=== PATIENT | male | born 1955 | race Caucasian/White ===

== ENCOUNTER 2021-06-16 04:56 | Emergency (ER) | payer BC ==
[2021-06-16 05:03] VITALS: TEMP 97.5
[2021-06-16] MEDS ORDERED: NITROGLYCERIN SL TABS 0.4 MG TAB SUBLINGUAL STA (05:28)
[2021-06-16 05:38] LABS: Basophils % (A) 1 %; Eosinophils # (A) 0.2 k/uL (0-0.7); Eosinophils % (A) 2 %; HCT 47.5 % (39.0-53.0); HGB 15.8 gm/dL (13.0-17.5); Lymphocytes # (A) 1.7 k/uL (1.0-4.8); Lymphocytes % (A) 23 %; MCHC 33.2 g/dL (31.0-37.0); MCV 102.4 fL (80.0-100.0); Macrocytosis Slight; Mean Platelet Volume 8.6; Monocytes # (A) 0.4 k/uL (0-1.0); Monocytes % (A) 6 %; Neutrophils # (A) 4.7 k/uL (1.3-7.7); Neutrophils % (A) 65 %; Platelet Count 156 k/uL (150-450); RBC 4.63 m/uL (4.30-5.90); RDW 13.7 % (11.5-15.5); WBC 7.2 k/uL (3.8-10.6)
[2021-06-16 06:03] LABS: ALT 22 U/L (4-49); AST 25 U/L (17-59); African American GFR (CKD) >90 (>60 ml/min/1.73 sqM); Alkaline Phosphatase 53 U/L (38-126); Amylase 54 U/L (30-110); Anion Gap 7 mmol/L; Blood Urea Nitrogen 13 mg/dL (9-20); Calcium 9.3 mg/dL (8.4-10.2); Carbon Dioxide 25 mmol/L (22-30); Chloride 107 mmol/L (98-107); Glucose 114 mg/dL (74-99); Lipase 95 U/L (23-300); Magnesium 1.8 mg/dL (1.6-2.3); Non-African American GFR(CKD) >90 (>60 ml/min/1.73 sqM); Potassium 4.7 mmol/L (3.5-5.1); Sodium 139 mmol/L (137-145); Total Bilirubin 0.4 mg/dL (0.2-1.3); Total Protein 6.6 g/dL (6.3-8.2)
[2021-06-16 06:07] LABS: INR 0.9 (<1.2); Prothrombin Time 9.9 sec (9.0-12.0)
--- NOTE | 2021-06-16 06:10 | XR ---
EXAMINATION TYPE: XR chest 1V portable DATE OF EXAM: 06/16/2021 COMPARISON: NONE HISTORY: Chest pain TECHNIQUE: Single view FINDINGS: Heart appears enlarged. There is no heart failure. Lungs are clear of consolidation. There are no hilar masses. There are chest leads. IMPRESSION: No active cardiopulmonary disease. There is probably cardiomegaly.
--- NOTE | 2021-06-16 06:24 | ED ---
Chest Pain HPI - General Chief Complaint: Chest Pain Stated Complaint: Chest Pain Time Seen by Provider: 06/16/21 05:11 Source: patient, family Mode of arrival: ambulatory Limitations: no limitations - History of Present Illness Initial Comments: This patient is a 65-year-old man who presents to be evaluated for substernal chest pain radiating to his back and shortness of breath. The patient notes that it had come on though was very mild at midnight shortly after he applied drops to his eye. Patient states that he is using a medication for his eye after having cataract surgery. He does note that he had similar reaction when he had a cataract surgery for the other eye a few weeks ago. The patient applied another dropped his eye around 2 AM and states that his symptoms worsened at that time. MD Complaint: chest pain -: hour(s) Onset: during rest Pain Location: substernal Pain Radiation: back Severity: moderate Quality: aching Consistency: constant Improves With: nothing Worsens With: nothing Context: recent surgery Anginal Symptoms: dyspnea Treatments Prior to Arrival: none - Related Data Allergies Allergy/AdvReac Type Severity Reaction Status Date / Time No Known Allergies Allergy Verified 06/16/21 05:03 Review of Systems ROS Statement: Those systems with pertinent positive or pertinent negative responses have been documented in the HPI. ROS Other: All systems not noted in ROS Statement are negative. Constitutional: Denies: fever, chills Respiratory: Reports: as per HPI, dyspnea. Denies: cough, wheezes, hemoptysis Cardiovascular: Reports: chest pain. Denies: palpitations, orthopnea, edema, syncope Gastrointestinal: Denies: abdominal pain, nausea, vomiting, diarrhea Genitourinary: Denies: dysuria, hematuria Musculoskeletal: Reports: back pain Skin: Denies: rash Neurological: Denies: headache, weakness, numbness Psychiatric: Reports: anxiety EKG Findings - EKG Results: EKG: interpreted by ERMD, sinus rhythm (Rate 69 bpm), normal QRS, normal ST/T - Blocks, [place], Hypertrophy, ST Abn: QRS axis and voltage: left axis deviation (-30 to -90) Past Medical History Past Medical History: Hypertension History of Any Multi-Drug Resistant Organisms: None Reported Past Surgical History: Orthopedic Surgery Additional Past Surgical History / Comment(s): cataracts Smoking Status: Former smoker Past Alcohol Use History: Occasional Past Drug Use History: None Reported General Exam Limitations: no limitations General appearance: alert, in no apparent distress Head exam: Present: atraumatic, normocephalic Eye exam: Present: normal appearance. Absent: scleral icterus, conjunctival injection ENT exam: Present: normal oropharynx Neck exam: Present: normal inspection Respiratory exam: Present: normal lung sounds bilaterally. Absent: respiratory distress, wheezes, rales, rhonchi, stridor, chest wall tenderness, accessory muscle use, decreased breath sounds Cardiovascular Exam: Present: regular rate, normal rhythm, normal heart sounds. Absent: systolic murmur, diastolic murmur, rubs, gallop GI/Abdominal exam: Present: soft. Absent: distended, tenderness, guarding, rebound, rigid, mass Extremities exam: Present: normal inspection, normal capillary refill. Absent: pedal edema, calf tenderness Back exam: Present: normal inspection. Absent: CVA tenderness (R), CVA tenderness (L) Neurological exam: Present: alert Skin exam: Present: warm, dry, intact, normal color. Absent: rash Course Vital Signs 06/16/21 06/16/21 04:58 06:33 Temperature 97.5 F L Pulse Rate 71 65 Respiratory 28 H 18 Rate Blood Pressure 166/92 150/77 O2 Sat by Pulse 97 98 Oximetry Chest Pain MDM - MDM This patient is 65-year-old man with chest pain and dyspnea. His initial workup is negative, and I discussed admission for telemetry monitoring, serial enzymes and cardiology consultation. The patient is feeling well now and is convinced that he is having a medication reaction. I stated that I think that this is l ess likely to be the case and I'm more concerned about possibly of missing a coronary syndrome, but the patient does not want stay. We discussed and he agrees that he will return should any symptoms recur or if any new symptoms develop. Patient will have close follow-up with his physician to see about arranging possible stress test. Disposition Clinical Impression: Chest pain Disposition: Left Against Medical Advice Condition: Undetermined Instructions (If sedation given, give patient instructions): Chest Pain (ED) Is patient prescribed a controlled substance at d/c from ED?: No Referrals: Bruce Rebolledo MD [Primary Care Provider] - 1-2 days
[2021-06-16 06:34] VITALS: BP 150/77; PULSE 65; RESP 18
== END 2021-06-16 06:44 | disposition left against medical advice (07) ==
LOC: EC 04:56
DX: R07.9 Chest pain, unspecified (principal); I10 Essential (primary) hypertension; Z79.891 Long term (current) use of opiate analgesic
CPT/HCPCS: 36415; 71045; 80053; 82150; 83690; 83735; 83880; 84484; 85025; 85610; 85730; 93005; 99285

== ENCOUNTER 2022-11-06 17:48 | Emergency (ER) | payer MEDICARE, BC ==
[2022-11-06 17:56] VITALS: TEMP 98.2
[2022-11-06] MEDS ORDERED: SODIUM CHLORIDE 0.9% 1,000 ML IV STA (18:44)
[2022-11-06] MEDS ORDERED: LORazepam 2 MG/ML INJ IV STA (18:47)
[2022-11-06] MEDS ORDERED: IPRATROPIUM-ALBUTEROL 3 ML NEB INHALATION STA (18:48)
--- NOTE | 2022-11-06 18:50 | ED ---
General Adult HPI - General Chief complaint: Weakness Stated complaint: weakness Time Seen by Provider: 11/06/22 18:35 Source: patient, EMS, RN notes reviewed Mode of arrival: EMS Limitations: no limitations - History of Present Illness Initial comments: Patient is a pleasant 66-year-old male presenting to the emergency Department with general weakness. Patient did have COVID-19 infection back in May and has been having some symptoms since that time. Patient states his has been diagnosed with critical disease over the past month and is not doing well. She has been hospitalized. Patient was not tolerating this well. Patient just feels generally weak. Patient is having difficulty getting around. Patient does feel somewhat short of breath. No isolated area of weakness or confusion. - Related Data Home Medications Medication Instructions Recorded Confirmed Diclofenac Sodium Gel [Voltaren 1 applic TOPICAL QID PRN 11/06/22 11/06/22 Gel] Ibuprofen [Motrin] 800 mg PO Q8H PRN 11/06/22 11/06/22 Losartan Potassium [Cozaar] 100 mg PO HS 11/06/22 11/06/22 amLODIPine [Norvasc] 5 mg PO HS 11/06/22 11/06/22 hydrOXYzine HCL [Atarax] 25 mg PO TID PRN 11/06/22 11/06/22 oxyCODONE-APAP 5-325MG [Percocet 0.5 tab PO BID PRN 11/06/22 11/06/22 5-325 mg] Allergies Allergy/AdvReac Type Severity Reaction Status Date / Time methylprednisolone AdvReac Nausea & Verified 11/06/22 19:30 Vomiting & Diarrhea Review of Systems ROS Statement: Those systems with pertinent positive or pertinent negative responses have been documented in the HPI. ROS Other: All systems not noted in ROS Statement are negative. Constitutional: Denies: fever, chills Eyes: Denies: eye pain ENT: Reports: congestion (Mostly resolved). Denies: ear pain Respiratory: Reports: dyspnea Cardiovascular: Denies: chest pain Endocrine: Reports: fatigue Gastrointestinal: Reports: nausea. Denies: abdominal pain Genitourinary: Denies: dysuria Musculoskeletal: Denies: back pain Skin: Denies: rash Neurological: Reports: as per HPI, weakness. Denies: headache Psychiatric: Reports: anxiety Past Medical History Past Medical History: GI Bleed, Hypertension History of Any Multi-Drug Resistant Organisms: None Reported Past Surgical History: Orthopedic Surgery Additional Past Surgical History / Comment(s): cataracts Smoking Status: Former smoker Past Alcohol Use History: Occasional Past Drug Use History: None Reported General Exam Limitations: no limitations General appearance: alert, in no apparent distress Head exam: Present: atraumatic, normocephalic Eye exam: Present: normal appearance, PERRL, EOMI ENT exam: Present: normal oropharynx Neck exam: Present: normal inspection Respiratory exam: Present: normal lung sounds bilaterally Cardiovascular Exam: Present: regular rate, normal rhythm GI/Abdominal exam: Present: soft. Absent: tenderness Extremities exam: Present: normal inspection. Absent: pedal edema, calf tenderness Neurological exam: Present: alert, oriented X3, CN II-XII intact. Absent: motor sensory deficit Expanded Neurological exam: Present: protecting the airway Speech: Present: fluid speech Cranial nerves: EOM's Intact: Normal, Facial Sensation: Normal Motor strength exam: RUE: 5, LUE: 5, RLE: 5, LLE: 5 Eye Response: (4) open spontaneously Motor Response: (6) obeys commands Verbal Response: (5) oriented Psychiatric exam: Present: anxious (When questioned regarding his ) Skin exam: Present: normal color Course Vital Signs 11/06/22 11/06/22 11/06/22 17:54 18:00 18:29 Temperature 98.2 F Pulse Rate 79 76 Respiratory 22 18 18 Rate Blood Pressure 163/81 173/89 O2 Sat by Pulse 95 95 Oximetry 11/06/22 11/06/22 11/06/22 20:00 20:17 20:27 Temperature Pulse Rate 68 74 80 Respiratory 16 16 Rate Blood Pressure 139/98 145/105 O2 Sat by Pulse 98 Oximetry EKG Findings - EKG Results: EKG: interpreted by ERMD (Left axis. Left anterior fascicular block. No acute ST change. Q wave septal.), sinus rhythm, normal ST/T Medical Decision Making - Medical Decision Making Was pt. sent in by a medical professional or institution (, PA, [employer] [facility], urgent care, hospital, or prison...) When possible be specific @ -No Did you speak to anyone other than the patient for history (EMS, parent, family, police, friend...)? What history was obtained from this source @ -Family members are present and helps provide history including concerns with sick family member Did you review nursing and triage notes (agree or disagree)? Why? @ -I reviewed and agree with nursing and triage notes Were old charts reviewed (outside hosp., previous admission, EMS record, old EKG, old radiological studies, urgent care reports/EKG's, prison records)? Report findings @ -No old charts were reviewed Differential Diagnosis (chest pain, altered mental status, abdominal pain women, abdominal pain men, vaginal bleeding, weakness, fever, dyspnea, syncope, headache, dizziness, GI bleed, back pain, seizure, CVA, palpatations, mental health)? @ -Differential Weakness: Hypoglycemia, shock, sepsis, hyponatremia, anemia, infection, VT, ETOH, adverse medicine reaction, overdose, stroke, this is not meant to be an all-inclusive list. EKG interpreted by me (3pts min.). @ -As above X-rays interpreted by me (1pt min.). @ -As above CT interpreted by me (1pt min.). @ -None done U/S interpreted by me (1pt. min.). @ -None done What testing was considered but not performed or refused? (CT, X-rays, U/S, labs)? Why? @ -None What meds were considered but not given or refused? Why? @ -None Did you discuss the management of the patient with other professionals (professionals i.e. , PA, [employer], lab, RT, psych nurse, social work program coordinator, furnace maintenance, teacher, community liaison officer, case management coordinator)? Give summary @ -No Was smoking cessation discussed for >3mins.? @ -No Was critical care preformed (if so, how long)? @ -No Were there social determinants of health that impacted care today? How? (Homelessness, low income, unemployed, alcoholism, drug addiction, transportation, low edu. Level, literacy, decrease access to med. care, senior care, rehab)? @ -No Was there de-escalation of care discussed even if they declined (Discuss DNR or withdrawal of care, Hospice)? DNR status @ -No What co-morbidities impacted this encounter? (DM, HTN, Smoking, COPD, CAD, Cancer, CVA, ARF, Chemo, Hep., AIDS, mental health diagnosis, sleep apnea, morbid obesity)? @ -None Was patient admitted / discharged? Hospital course, mention meds given and route, prescriptions, significant lab abnormalities, going to OR and other pertinent info. @ -Patient reevaluated and resting comfortably in bed. Patient is feeling much better after Ativan. Discussion with patient regarding some limitation with computed tomography scan and as well as other testing. Patient is offered admission however patient refuses this. Patient states he is walking fine and requests discharge home. Undiagnosed new problem with uncertain prognosis? @ -No Drug Therapy requiring intensive monitoring for toxicity (Heparin, Nitro, Insulin, Cardizem)? @ -No Were any procedures done? @ -No Diagnosis/symptom? @ -General weakness Acute, or Chronic, or Acute on Chronic? @ -Acute Uncomplicated (without systemic symptoms) or Complicated (systemic symptoms)? @ -Uncomplicated Side effects of treatment? @ -No Exacerbation, Progression, or Severe Exacerbation? @ -No Poses a threat to life or bodily function? How? (Chest pain, [place], VT, pneumonia, PE, COPD, DKA, ARF, appy, cholecystitis, CVA, Diverticulitis, Homicidal, Suicidal, threat to staff... and all critical care pts) @ -No - Lab Data Result diagrams: 11/06/22 18:53 11/06/22 18:53 Lab Results 11/06/22 11/06/22 11/06/22 Range/Units 18:53 18:53 18:53 WBC 7.0 (3.8-10.6) k/uL RBC 4.43 (4.30-5.90) m/uL Hgb 14.3 (13.0-17.5) gm/dL Hct 42.4 (39.0-53.0) % MCV 95.7 (80.0-100.0) fL MCH 32.2 (25.0-35.0) pg MCHC 33.6 (31.0-37.0) g/dL RDW 12.9 (11.5-15.5) % Plt Count 152 (150-450) k/uL MPV 8.6 Neutrophils % 78 % Lymphocytes % 14 % Monocytes % 5 % Eosinophils % 1 % Basophils % 1 % Neutrophils # 5.4 (1.3-7.7) k/uL Lymphocytes # 1.0 (1.0-4.8) k/uL Monocytes # 0.3 (0-1.0) k/uL Eosinophils # 0.1 (0-0.7) k/uL Basophils # 0.1 (0-0.2) k/uL PT 9.9 (9.0-12.0) sec INR 0.9 (<1.2) APTT 23.0 (22.0-30.0) sec D-Dimer 0.30 (<0.60) mg/L FEU Sodium 138 (137-145) mmol/L Potassium 4.3 (3.5-5.1) mmol/L Chloride 107 (98-107) mmol/L Carbon Dioxide 27 (22-30) mmol/L Anion Gap 4 mmol/L BUN 20 (9-20) mg/dL Creatinine 0.80 (0.66-1.25) mg/dL Est GFR (CKD-EPI)AfAm >90 (>60 ml/min/1.73 sqM) Est GFR (CKD-EPI)NonAf >90 (>60 ml/min/1.73 sqM) Glucose 109 H (74-99) mg/dL Plasma Lactic Acid [place] (0.7-2.0) mmol/L Calcium 8.6 (8.4-10.2) mg/dL Magnesium 1.8 (1.6-2.3) mg/dL Total Bilirubin 0.2 (0.2-1.3) mg/dL AST 18 (17-59) U/L ALT 20 (4-49) U/L Alkaline Phosphatase 53 (38-126) U/L Troponin I (0.000-0.034) ng/mL NT-Pro-B Natriuret Pep pg/mL Total Protein 6.3 (6.3-8.2) g/dL Albumin 3.8 (3.5-5.0) g/dL TSH 0.807 (0.465-4.680) mIU/L Free T4 1.21 (0.78-2.19) ng/dL Free T3 pg/mL 4.1 (2.8-5.3) pg/ml Urine Color Urine Appearance (Clear) Urine pH (5.0-8.0) Ur Specific [place] (1.001-1.035) Urine Protein (Negative) Urine Glucose (UA) (Negative) Urine Ketones (Negative) Urine Blood (Negative) Urine Nitrite (Negative) Urine Bilirubin (Negative) Urine Urobilinogen (<2.0) mg/dL Ur Leukocyte Esterase (Negative) Influenza Type A (PCR) (Not Detectd) Influenza Type B (PCR) (Not Detectd) RSV (PCR) (Not Detectd) SARS-CoV-2 (PCR) (Not Detectd) 11/06/22 11/06/22 11/06/22 Range/Units 18:53 18:53 18:53 WBC (3.8-10.6) k/uL RBC (4.30-5.90) m/uL Hgb (13.0-17.5) gm/dL Hct (39.0-53.0) % MCV (80.0-100.0) fL MCH (25.0-35.0) pg MCHC (31.0-37.0) g/dL RDW (11.5-15.5) % Plt Count (150-450) k/uL MPV Neutrophils % % Lymphocytes % % Monocytes % % Eosinophils % % Basophils % % Neutrophils # (1.3-7.7) k/uL Lymphocytes # (1.0-4.8) k/uL Monocytes # (0-1.0) k/uL Eosinophils # (0-0.7) k/uL Basophils # (0-0.2) k/uL PT (9.0-12.0) sec INR (<1.2) APTT (22.0-30.0) sec D-Dimer (<0.60) mg/L FEU Sodium (137-145) mmol/L Potassium (3.5-5.1) mmol/L Chloride (98-107) mmol/L Carbon Dioxide (22-30) mmol/L Anion Gap mmol/L BUN (9-20) mg/dL Creatinine (0.66-1.25) mg/dL Est GFR (CKD-EPI)AfAm (>60 ml/min/1.73 sqM) Est GFR (CKD-EPI)NonAf (>60 ml/min/1.73 sqM) Glucose (74-99) mg/dL Plasma Lactic Acid [place] 1.5 (0.7-2.0) mmol/L Calcium (8.4-10.2) mg/dL Magnesium (1.6-2.3) mg/dL Total Bilirubin (0.2-1.3) mg/dL AST (17-59) U/L ALT (4-49) U/L Alkaline Phosphatase (38-126) U/L Troponin I <0.012 (0.000-0.034) ng/mL NT-Pro-B Natriuret Pep pg/mL Total Protein (6.3-8.2) g/dL Albumin (3.5-5.0) g/dL TSH (0.465-4.680) mIU/L Free T4 (0.78-2.19) ng/dL Free T3 pg/mL (2.8-5.3) pg/ml Urine Color Urine Appearance (Clear) Urine pH (5.0-8.0) Ur Specific [place] (1.001-1.035) Urine Protein (Negative) Urine Glucose (UA) (Negative) Urine Ketones (Negative) Urine Blood (Negative) Urine Nitrite (Negative) Urine Bilirubin (Negative) Urine Urobilinogen (<2.0) mg/dL Ur Leukocyte Esterase (Negative) Influenza Type A (PCR) Not Detected (Not Detectd) Influenza Type B (PCR) Not Detected (Not Detectd) RSV (PCR) Not Detected (Not Detectd) SARS-CoV-2 (PCR) Not Detected (Not Detectd) 11/06/22 11/06/22 Range/Units 18:53 19:53 WBC (3.8-10.6) k/uL RBC (4.30-5.90) m/uL Hgb (13.0-17.5) gm/dL Hct (39.0-53.0) % MCV (80.0-100.0) fL MCH (25.0-35.0) pg MCHC (31.0-37.0) g/dL RDW (11.5-15.5) % Plt Count (150-450) k/uL MPV Neutrophils % % Lymphocytes % % Monocytes % % Eosinophils % % Basophils % % Neutrophils # (1.3-7.7) k/uL Lymphocytes # (1.0-4.8) k/uL Monocytes # (0-1.0) k/uL Eosinophils # (0-0.7) k/uL Basophils # (0-0.2) k/uL PT (9.0-12.0) sec INR (<1.2) APTT (22.0-30.0) sec D-Dimer (<0.60) mg/L FEU Sodium (137-145) mmol/L Potassium (3.5-5.1) mmol/L Chloride (98-107) mmol/L Carbon Dioxide (22-30) mmol/L Anion Gap mmol/L BUN (9-20) mg/dL Creatinine (0.66-1.25) mg/dL Est GFR (CKD-EPI)AfAm (>60 ml/min/1.73 sqM) Est GFR (CKD-EPI)NonAf (>60 ml/min/1.73 sqM) Glucose (74-99) mg/dL Plasma Lactic Acid [place] (0.7-2.0) mmol/L Calcium (8.4-10.2) mg/dL Magnesium (1.6-2.3) mg/dL Total Bilirubin (0.2-1.3) mg/dL AST (17-59) U/L ALT (4-49) U/L Alkaline Phosphatase (38-126) U/L Troponin I (0.000-0.034) ng/mL NT-Pro-B Natriuret Pep 96 pg/mL Total Protein (6.3-8.2) g/dL Albumin (3.5-5.0) g/dL TSH (0.465-4.680) mIU/L Free T4 (0.78-2.19) ng/dL Free T3 pg/mL (2.8-5.3) pg/ml Urine Color Colorless Urine Appearance Clear (Clear) Urine pH 5.0 (5.0-8.0) Ur Specific [place] 1.008 (1.001-1.035) Urine Protein Negative (Negative) Urine Glucose (UA) Negative (Negative) Urine Ketones Negative (Negative) Urine Blood Negative (Negative) Urine Nitrite Negative (Negative) Urine Bilirubin Negative (Negative) Urine Urobilinogen <2.0 (<2.0) mg/dL Ur Leukocyte Esterase Negative (Negative) Influenza Type A (PCR) (Not Detectd) Influenza Type B (PCR) (Not Detectd) RSV (PCR) (Not Detectd) SARS-CoV-2 (PCR) (Not Detectd) - Radiology Data Radiology results: report reviewed (CT brain as discussed with radiologist shows some patchy bilateral white matter changes, likely chronic. Atrophy. No hemorrhage.) Interpreted by me: Chest x-ray shows no acute process Disposition Clinical Impression: General weakness, Anxiety Disposition: HOME SELF-CARE Condition: Stable Instructions (If sedation given, give patient instructions): Weakness (ED), Anxiety (ED) Additional Instructions: Please do follow-up with primary care physician in the next day or 2 for recheck. Return for unable to walk, worsening or change in symptoms, or any other concerns. Extra medication has been sent home with few to take if needed. Do not drive with this. Is patient prescribed a controlled substance at d/c from ED?: No Referrals: Bruce Rebolledo MD [Primary Care Provider] - 1-2 days Time of Disposition: 20:42
[2022-11-06 19:13] LABS: Basophils # (A) 0.1 k/uL (0-0.2); Basophils % (A) 1 %; Eosinophils # (A) 0.1 k/uL (0-0.7); Eosinophils % (A) 1 %; HCT 42.4 % (39.0-53.0); HGB 14.3 gm/dL (13.0-17.5); Lymphocytes % (A) 14 %; MCH 32.2 pg (25.0-35.0); MCHC 33.6 g/dL (31.0-37.0); MCV 95.7 fL (80.0-100.0); Mean Platelet Volume 8.6; Monocytes # (A) 0.3 k/uL (0-1.0); Monocytes % (A) 5 %; Neutrophils # (A) 5.4 k/uL (1.3-7.7); Neutrophils % (A) 78 %; Platelet Count 152 k/uL (150-450); RBC 4.43 m/uL (4.30-5.90); RDW 12.9 % (11.5-15.5)
--- NOTE | 2022-11-06 19:15 | XR ---
EXAMINATION TYPE: XR chest 2V DATE OF EXAM: 11/06/2022 COMPARISON: 06/16/2021 HISTORY: Weakness TECHNIQUE: 2 views FINDINGS: There is no heart failure nor confluent pneumonic infiltrate. Costophrenic angles are clear . There are chest leads. IMPRESSION: No active cardiopulmonary disease. No change.
[2022-11-06 19:28] LABS: ALT 20 U/L (4-49); AST 18 U/L (17-59); African American GFR (CKD) >90 (>60 ml/min/1.73 sqM); Albumin 3.8 g/dL (3.5-5.0); Alkaline Phosphatase 53 U/L (38-126); Anion Gap 4 mmol/L; Blood Urea Nitrogen 20 mg/dL (9-20); Calcium 8.6 mg/dL (8.4-10.2); Carbon Dioxide 27 mmol/L (22-30); Chloride 107 mmol/L (98-107); Glucose 109 mg/dL (74-99); Magnesium 1.8 mg/dL (1.6-2.3); Non-African American GFR(CKD) >90 (>60 ml/min/1.73 sqM); Potassium 4.3 mmol/L (3.5-5.1); Sodium 138 mmol/L (137-145); Total Bilirubin 0.2 mg/dL (0.2-1.3); Total Protein 6.3 g/dL (6.3-8.2)
[2022-11-06 19:33] LABS: INR 0.9 (<1.2); Prothrombin Time 9.9 sec (9.0-12.0)
[2022-11-06 19:40] LABS: T4, Free (Free Thyroxine) 1.21 ng/dL (0.78-2.19)
--- NOTE | 2022-11-06 19:54 | CT ---
EXAMINATION TYPE: CT brain wo con DATE OF EXAM: 11/06/2022 COMPARISON: None HISTORY: Weakness x4mo. CT DLP: 1162.4 mGycm Automated exposure control for dose reduction was used. Images of the brain obtained with no contrast. There is mild cerebral cortical atrophy. There is no mass effect or midline shift. No sign of intracr anial hemorrhage. There is some patchy hypodensity in the periventricular white matter bilaterally. The calvarium is intact. There is normal aeration of the mastoid sinuses. Skull base is intact. IMPRESSION: There is some patchy bilateral white matter hypodensities suggestive of microvascular ischemia. No he morrhage. Mild atrophy.
[2022-11-06 20:17] VITALS: RESP 16
[2022-11-06 20:18] VITALS: BP 145/105
[2022-11-06 20:20] LABS: Appearance,Urine Clear (Clear); Bilirubin,Urine Negative (Negative); Blood,Urine Negative (Negative); Color,Urine Colorless; Glucose,Urine (UA) Negative (Negative); Ketones,Urine Negative (Negative); Leukocyte Esterase,Urine Negative (Negative); Nitrite,Urine Negative (Negative); Protein,Urine Negative (Negative); Specific Gravity,Urine 1.008 (1.001-1.035); Urobilinogen,Urine <2.0 mg/dL (<2.0)
[2022-11-06 20:28] VITALS: PULSE 80
[2022-11-06] MEDS ORDERED: ALPRAZolam 0.5 MG TAB PO STA (20:43)
== END 2022-11-06 21:22 | disposition home or self-care (01) ==
LOC: EC 17:48
DX: R53.1 Weakness (principal); F41.9 Anxiety disorder, unspecified; I10 Essential (primary) hypertension; Z87.891 Personal history of nicotine dependence; Z88.8 Allergy status to other drugs, medicaments and biological substances; Z79.899 Other long term (current) drug therapy; Z20.822 Contact with and (suspected) exposure to COVID-19
CPT/HCPCS: 36415; 94640; 85379; 84439; 84481; 83880; 80053; 83605; 83735; 84443; 84484; 85025; 85610; 85730; 81003; 87636; 71046; 70450; 99285; 96374; 96361; J2060

== ENCOUNTER 2024-04-30 16:04 | Inpatient (IN) | payer BC, MEDICARE ==
[2024-04-30 16:39] LABS: Basophils % (A) 1 %; Eosinophils # (A) 0.2 k/uL (0-0.7); Eosinophils % (A) 3 %; HCT 43.6 % (39.0-53.0); HGB 14.2 gm/dL (13.0-17.5); Lymphocytes # (A) 1.4 k/uL (1.0-4.8); Lymphocytes % (A) 21 %; MCH 32.5 pg (25.0-35.0); MCHC 32.4 g/dL (31.0-37.0); MCV 100.1 fL (80.0-100.0); Mean Platelet Volume 9.1; Monocytes # (A) 0.4 k/uL (0-1.0); Monocytes % (A) 5 %; Neutrophils # (A) 4.4 k/uL (1.3-7.7); Neutrophils % (A) 66 %; Platelet Count 158 k/uL (150-450); RBC 4.36 m/uL (4.30-5.90); RDW 13.6 % (11.5-15.5); WBC 6.6 k/uL (3.8-10.6)
[2024-04-30 16:51] LABS: INR 1.1 (<1.2); Partial Thromboplastin Time 25.2 sec (22.0-30.0); Prothrombin Time 12.1 sec (10.0-12.5)
--- NOTE | 2024-04-30 16:56 | ED ---
General Adult HPI - General Chief complaint: Arrhythmia/Palpitations Stated complaint: AFIB Time Seen by Provider: 04/30/24 16:18 Source: patient, RN notes reviewed, old records reviewed Mode of arrival: ambulatory Limitations: no limitations - History of Present Illness Initial comments: 68-year-old male sent from primary care office with new onset atrial fibrillation with RVR. Patient has no prior history of CAD, no history of atrial fibrillation. He has had some symptoms of left-sided chest discomfort and mild dyspnea. Patient denies central chest pain at the time my evaluation. Denies any illicit drugs or alcohol. Patient has had intermittent palpitations. - Related Data Home Medications Medication Instructions Recorded Confirmed Diclofenac Sodium Gel [Voltaren 1 applic TOPICAL QID PRN 11/06/22 11/06/22 Gel] Ibuprofen [Motrin] 800 mg PO Q8H PRN 11/06/22 11/06/22 Losartan Potassium [Cozaar] 100 mg PO HS 11/06/22 11/06/22 amLODIPine [Norvasc] 5 mg PO HS 11/06/22 11/06/22 hydrOXYzine HCL [Atarax] 25 mg PO TID PRN 11/06/22 11/06/22 oxyCODONE-APAP 5-325MG [Percocet 0.5 tab PO BID PRN 11/06/22 11/06/22 5-325 mg] Allergies Allergy/AdvReac Type Severity Reaction Status Date / Time methylprednisolone AdvReac Nausea & Verified 04/30/24 16:05 Vomiting & Diarrhea Review of Systems ROS Statement: Those systems with pertinent positive or pertinent negative responses have been documented in the HPI. ROS Other: All systems not noted in ROS Statement are negative. Past Medical History Past Medical History: GI Bleed, Hypertension History of Any Multi-Drug Resistant Organisms: None Reported Past Surgical History: Orthopedic Surgery Additional Past Surgical History / Comment(s): cataracts Smoking Status: Former smoker Past Alcohol Use History: Occasional Past Drug Use History: None Reported General Exam Limitations: no limitations General appearance: alert, in no apparent distress Head exam: Present: atraumatic, normocephalic Eye exam: Present: normal appearance, PERRL ENT exam: Present: normal exam Neck exam: Present: normal inspection. Absent: tenderness, meningismus Respiratory exam: Present: decreased breath sounds. Absent: respiratory distress, wheezes Cardiovascular Exam: Present: tachycardia, irregular rhythm GI/Abdominal exam: Present: soft. Absent: distended, tenderness, guarding Extremities exam: Present: normal inspection, normal capillary refill. Absent: pedal edema Neurological exam: Present: alert, oriented X3 Psychiatric exam: Present: normal affect, normal mood Skin exam: Present: warm, dry, intact. Absent: cyanosis, diaphoretic Course Vital Signs 04/30/24 04/30/24 04/30/24 16:05 16:19 16:30 Temperature 97.7 F Pulse Rate 72 Pulse Rate [ 151 H 144 H Veneer Jointer Returner ] Respiratory 16 Rate Blood Pressure 132/92 O2 Sat by Pulse 95 Oximetry 04/30/24 04/30/24 17:06 17:18 Temperature Pulse Rate 151 H 144 H Pulse Rate [ Veneer Jointer Returner ] Respiratory 16 Rate Blood Pressure 117/102 117/102 O2 Sat by Pulse 96 Oximetry Medical Decision Making - Medical Decision Making Was pt. sent in by a medical professional or institution (, PA, BATTER MIXER, urgent care, hospital, or snf...) When possible be specific @ -Patient was sent in by primary care with new onset atrial fibrillation Did you speak to anyone other than the patient for history (EMS, parent, family, police, friend...)? What history was obtained from this source @ -No Did you review nursing and triage notes (agree or disagree)? Why? @ -I reviewed and agree with nursing and triage notes Were old charts reviewed (outside hosp., previous admission, EMS record, old EKG, old radiological studies, urgent care reports/EKG's, snf records)? Report findings @ -No old charts were reviewed Differential Palpitations Ventricular arrhythmias, atrial arrhythmias, myocardial infarction, anemia, thyrotoxicosis, electrolyte imbalance, hypokalemia, pulmonary embolism, pulmonary disease, drugs, alcohol, anxiety, stress.... This is not meant to be an all-inclusive list. EKG interpreted by me (3pts min.). @EKG: Atrial fibrillation with RVR, rate of 144, QRS duration 97, QTc 376, no ST segment elevation. X-rays interpreted by me (1pt min.). @ -Chest x-ray negative for acute cardiopulmonary CT interpreted by me (1pt min.). @ -None done U/S interpreted by me (1pt. min.). @ -None done What testing was considered but not performed or refused? (CT, X-rays, U/S, labs)? Why? @ -None What meds were considered but not given or refused? Why? @ -None Did you discuss the management of the patient with other professionals (professionals i.e. , PA, BATTER MIXER, lab, RT, psych nurse, medical social consultant, dusting and brushing machine operator, teacher, aboriginal liaison officer, outpatient case manager)? Give summary @ -No Was smoking cessation discussed for >3mins.? @ -No Was critical care preformed (if so, how long)? @ -yes, 35 min Were there social determinants of health that impacted care today? How? (Homelessness, low income, unemployed, alcoholism, drug addiction, transportation, low edu. Level, literacy, decrease access to med. care, fpc, rehab)? @ -No Was there de-escalation of care discussed even if they declined (Discuss DNR or withdrawal of care, Hospice)? DNR status @ -No What co-morbidities impacted this encounter? (DM, HTN, Smoking, COPD, CAD, Cancer, CVA, ARF, Chemo, Hep., AIDS, mental health diagnosis, sleep apnea, morbid obesity)? @ -None Was patient admitted / discharged? Hospital course, mention meds given and route, prescriptions, significant lab abnormalities, going to OR and other pertinent info. @ -68 yo male presenting with new onset atrial fibrillation with RVR, patient has no prior history. He does have some vague chest discomfort associated with this. Patient started on Cardizem and heparin in the emergency department. He has normal lab testing, chest x-ray is clear. He is admitted to [facility], Dr. Winter with cardiology on consultation. Undiagnosed new problem with uncertain prognosis? @ -No Drug Therapy requiring intensive monitoring for toxicity (Heparin, Nitro, Insulin, Cardizem)? @ -No Were any procedures done? @ -No Diagnosis/symptom? @Atrial fibrillation with RVR Acute, or Chronic, or Acute on Chronic? @ -[acute Uncomplicated (without systemic symptoms) or Complicated (systemic symptoms)? @ -Default Side effects of treatment? @ -No Exacerbation, Progression, or Severe Exacerbation? @ -No Poses a threat to life or bodily function? How? (Chest pain, [place], [place], pneumonia, PE, COPD, DKA, ARF, appy, cholecystitis, CVA, Diverticulitis, Homicidal, Suicidal, threat to staff... and all critical care pts) @ -yes, a-fib - Lab Data Result diagrams: 04/30/24 16:27 04/30/24 16:27 Lab Results 04/30/24 04/30/24 04/30/24 Range/Units 16:27 16:27 16:27 WBC 6.6 (3.8-10.6) k/uL RBC 4.36 (4.30-5.90) m/uL Hgb 14.2 (13.0-17.5) gm/dL Hct 43.6 (39.0-53.0) % MCV 100.1 H (80.0-100.0) fL MCH 32.5 (25.0-35.0) pg MCHC 32.4 (31.0-37.0) g/dL RDW 13.6 (11.5-15.5) % Plt Count 158 (150-450) k/uL MPV 9.1 Neutrophils % 66 % Lymphocytes % 21 % Monocytes % 5 % Eosinophils % 3 % Basophils % 1 % Neutrophils # 4.4 (1.3-7.7) k/uL Lymphocytes # 1.4 (1.0-4.8) k/uL Monocytes # 0.4 (0-1.0) k/uL Eosinophils # 0.2 (0-0.7) k/uL Basophils # 0.0 (0-0.2) k/uL PT 12.1 (10.0-12.5) sec INR 1.1 (<1.2) APTT 25.2 (22.0-30.0) sec Sodium 139 (137-145) mmol/L Potassium 4.5 (3.5-5.1) mmol/L Chloride 110 H (98-107) mmol/L Carbon Dioxide 25 (22-30) mmol/L Anion Gap 4 mmol/L BUN 21 H (9-20) mg/dL Creatinine 0.86 (0.66-1.25) mg/dL Est GFR (CKD-EPI)AfAm >90 (>60 ml/min/1.73 sqM) Est GFR (CKD-EPI)NonAf 88 (>60 ml/min/1.73 sqM) Glucose 98 (74-99) mg/dL Calcium 8.7 (8.4-10.2) mg/dL Magnesium 1.8 (1.6-2.3) mg/dL Total Bilirubin 0.7 (0.2-1.3) mg/dL AST 21 (17-59) U/L ALT 22 (4-49) U/L Alkaline Phosphatase 54 (38-126) U/L Troponin I (0.000-0.034) ng/mL Total Protein 6.1 L (6.3-8.2) g/dL Albumin 3.7 (3.5-5.0) g/dL TSH 1.410 (0.465-4.680) mIU/L 04/30/24 Range/Units 16:27 WBC (3.8-10.6) k/uL RBC (4.30-5.90) m/uL Hgb (13.0-17.5) gm/dL Hct (39.0-53.0) % MCV (80.0-100.0) fL MCH (25.0-35.0) pg MCHC (31.0-37.0) g/dL RDW (11.5-15.5) % Plt Count (150-450) k/uL MPV Neutrophils % % Lymphocytes % % Monocytes % % Eosinophils % % Basophils % % Neutrophils # (1.3-7.7) k/uL Lymphocytes # (1.0-4.8) k/uL Monocytes # (0-1.0) k/uL Eosinophils # (0-0.7) k/uL Basophils # (0-0.2) k/uL PT (10.0-12.5) sec INR (<1.2) APTT (22.0-30.0) sec Sodium (137-145) mmol/L Potassium (3.5-5.1) mmol/L Chloride (98-107) mmol/L Carbon Dioxide (22-30) mmol/L Anion Gap mmol/L BUN (9-20) mg/dL Creatinine (0.66-1.25) mg/dL Est GFR (CKD-EPI)AfAm (>60 ml/min/1.73 sqM) Est GFR (CKD-EPI)NonAf (>60 ml/min/1.73 sqM) Glucose (74-99) mg/dL Calcium (8.4-10.2) mg/dL Magnesium (1.6-2.3) mg/dL Total Bilirubin (0.2-1.3) mg/dL AST (17-59) U/L ALT (4-49) U/L Alkaline Phosphatase (38-126) U/L Troponin I <0.012 (0.000-0.034) ng/mL Total Protein (6.3-8.2) g/dL Albumin (3.5-5.0) g/dL TSH (0.465-4.680) mIU/L Critical Care Time Critical Care Time: Yes Total Critical Care Time: 35 Disposition Clinical Impression: Atrial fibrillation, Atrial fibrillation with RVR Disposition: ADMITTED IP TO THIS HOSP Condition: Stable Is patient prescribed a controlled substance at d/c from ED?: No Referrals: Bruce Rebolledo MD [Primary Care Provider] - 1-2 days Time of Disposition: 17:44
[2024-04-30 16:58] LABS: ALT 22 U/L (4-49); AST 21 U/L (17-59); African American GFR (CKD) >90 (>60 ml/min/1.73 sqM); Albumin 3.7 g/dL (3.5-5.0); Alkaline Phosphatase 54 U/L (38-126); Anion Gap 4 mmol/L; Blood Urea Nitrogen 21 mg/dL (9-20); Calcium 8.7 mg/dL (8.4-10.2); Carbon Dioxide 25 mmol/L (22-30); Chloride 110 mmol/L (98-107); Glucose 98 mg/dL (74-99); Magnesium 1.8 mg/dL (1.6-2.3); Non-African American GFR(CKD) 88 (>60 ml/min/1.73 sqM); Potassium 4.5 mmol/L (3.5-5.1); Sodium 139 mmol/L (137-145); Total Bilirubin 0.7 mg/dL (0.2-1.3); Total Protein 6.1 g/dL (6.3-8.2)
[2024-04-30] MEDS: DILTIAZEM DRIP BOLUS FROM BAG 1 MG SOLN IV ONE (17:04)
[2024-04-30] MEDS: DILTIAZEM 125 MG in SODIUM CHLORIDE 0.9% 100 ML IV SCH (17:05)
--- NOTE | 2024-04-30 17:29 | XR ---
EXAMINATION TYPE: XR chest 2V DATE OF EXAM: 04/30/2024 COMPARISON: 11/06/2022 INDICATION: Dysrhythmia TECHNIQUE: Frontal and lateral views of the chest are obtained. FINDINGS: The heart size is prominent. The pulmonary vasculature is normal. The lungs are clear. IMPRESSION: 1. Mild cardiomegaly.
[2024-04-30] MEDS ORDERED: NALOXONE 0.4 MG/ML 1 ML VIAL IV PRN (17:37)
[2024-04-30] MEDS: HEPARIN SODIUM 1,000 UN/ML (10ML VL) IV ONE (18:39)
[2024-04-30] MEDS: HEPARIN SOD,PORK IN 0.45% NACL 25,000 UNIT in 0.45% NACL 1 250ML.BAG IV SCH (18:42)
--- NOTE | 2024-04-30 21:03 | P.HPIM ---
History of Present Illness H&P Date: 04/30/24 Chief Complaint: A-fib with RVR Patient is a 68-year-old male with hypertension and questionable history CAD came to ER from urgent care for A-fib with RVR. Patient was earlier assessed at the urgent care for his ongoing shortness of breath and was diagnosed with A-fib with RVR and was advised to go to ER. Patient reports shortness of breath since 3 weeks which has been constant, worse with physical activities and better with rest. His shortness of breath is also associated with left upper extremity weakness and dizziness Patient reports that he would feel weak on his left side whenever he would physically exerts himself and it would resolve upon rest. His dizziness is associated with postural changes especially when he gets up from sitting position. Patient denies calf pain, recent hospitalization, recent travel. Denies history of blood clots. Patient denies any thyroid disorder, history of coronary artery disease or CVA, He has tried some [id number] inhalers which did not alleviate his symptoms. . he did mention that about 25 years ago he felt chest discomfort while using illicit drugs. He underwent cardiology assessment but he is unsure whether he was diagnosed with coronary artery disease secondary to drug use. He otherwise denies any recent illicit drug use, loss of consciousness, headaches, blurry vision, upper respiratory tract infection, fever, chills, chest pain, abdominal discomfort, constipation, diarrhea, numbness or tingling in upper or lower extremities. EKG done in ER shows heart rate of 144, irregular, A-fib with RVR, nonspecific T wave abnormality. QTc is 376 ms and is not prolonged. Chest x-ray done in ER shows mild cardiomegaly with clear lung marvin. Vitals: Tmax 97.7 F, heart rate 152, irregular, respiration rate 16, blood pressure 130/95, O2 sat 98% on room air. Review of systems: Pertinent positives and negatives as discussed in HPI, a complete review of systems was performed and all other systems are negative. Social history: Tobacco: 5-pack-year; quit at age 23 Alcohol: 2 beers x 40 years; quit 1 year ago Recreational drugs: Illicit drug use 30 years ago Travel: None Occupation: Retired auto body mechanic apprentice. Family History: Noncontributory Physical examination: Vital signs reviewed General: non toxic, no distress, appears at stated age, normal weight Derm: no unusual rashes/lesions, warm Head: atraumatic, normocephalic, symmetric Eyes: EOMI, no lid lag, anicteric sclera, pupils equal round reactive to light ENT: Nose and ears atraumatic Neck: No cervical lymphadenopathy, trachea midline, supple Mouth: no lip lesion, mucus membranes moist Cardiovascular: S1S2 irregular, no murmur, positive dorsalis pedis pulse bilateral, no edema Lungs: Diminished breath sounds on right side, no rhonchi, no rales, no accessory muscle use Abdominal: soft, nontender to palpation, no guarding Ext: muscle strength 5 out of 5 in all 4 extremities grossly, no gross muscle atrophy, no contractures, Neuro: CN II-XI grossly intact, no gross focal neuro deficits Psych: Alert, oriented, appropriate affect Assessment/Plan: 68-year-old male with hypertension and suspected history of CAD presents to the ER with diagnosis of A-fib with RVR which is associated with shortness of breath, dizziness since 3 weeks. - New onset A-fib with RVR Continue with Cardizem IV 5 mg/h titrate for rate control<100 Continue with IV heparin dosing by pharmacy , switch to dual oral anticoagulants tomorrow per insurance coverage Continue cardiac monitoring Cardiology consulted Ordered echocardiogram to rule out cardiac structural abnormality , blood clots, as likely cause of arrhythmia Continue with troponin I series (latest less than 0.012) TSH 1.4; normal Well's Score: 1.5 points - Low risk , doubt DVT/PE at this time -Shortness of breath, secondary to A-fib with the RVR, and suspected due to undiagnosed COPD and Continue to monitor oxygen saturation Will start on DuoNebs as needed per diminished breath sounds on right lung examination Chest x-ray is unremarkable for abnormal pulmonary processes -Macrocytosis, likely due to poor diet Check RBC folate, vitamin B12 Hemoglobin 14.2, hematocrit 43.6, MCV 100.1, platelet 158 -Elevated BUN secondary to dehydration Sodium 139, potassium 4.5, chloride 110, bicarb 25, anion gap 4, BUN 21, creatinine 0.86, EGFR 88 Continue to monitor BUN/creatinine with repeat BMP IVF normal saline at 75 cc per hour *Chronic conditions: Hypertension continue home meds with hold parameters DVT prophylaxis: IV heparin for afib The patient is admitted with an anticipated more than 2 midnight stay for evaluation of A-fib with the RVR CODE STATUS: Full Discussed with: Patient Anticipated discharge place: Home Past Medical History Past Medical History: GI Bleed, Hypertension History of Any Multi-Drug Resistant Organisms: None Reported Past Surgical History: Orthopedic Surgery Additional Past Surgical History / Comment(s): cataracts Smoking Status: Former smoker Past Alcohol Use History: Occasional Past Drug Use History: None Reported Medications and Allergies Home Medications Medication Instructions Recorded Confirmed Type Losartan Potassium [Cozaar] 100 mg PO HS 11/06/22 04/30/24 History amLODIPine [Norvasc] 5 mg PO HS 11/06/22 04/30/24 History oxyCODONE-APAP 5-325MG [Percocet 0.5 tab PO BID 11/06/22 04/30/24 History 5-325 mg] Ibuprofen [Motrin Ib] 200 mg PO Q8H PRN 04/30/24 04/30/24 History Allergies Allergy/AdvReac Type Severity Reaction Status Date / Time Corticosteroids Allergy Swelling/Shortness Verified 04/30/24 17:43 (Glucocorticoids) of breath/Swelling methylprednisolone Allergy Swelling/Shortness Verified 04/30/24 17:43 of breath/Swelling Physical Exam Vitals: Vital Signs Temp Pulse Pulse Resp BP Pulse Ox 04/30/24 18:00 152 H 16 130/95 98 04/30/24 17:18 144 H 117/102 04/30/24 17:06 151 H 16 117/102 96 04/30/24 16:30 144 H 04/30/24 16:19 151 H 04/30/24 16:05 97.7 F 72 16 132/92 95 Intake and Output 04/30/24 04/30/24 04/30/24 06:59 14:59 22:59 Other: Weight 129.274 kg Results CBC & Chem 7: 04/30/24 16:27 04/30/24 16:27 Labs: Abnormal Lab Results - Last 24 Hours (Table) 04/30/24 04/30/24 Range/Units 16:27 16:27 MCV 100.1 H (80.0-100.0) fL Chloride 110 H (98-107) mmol/L BUN 21 H (9-20) mg/dL Total Protein 6.1 L (6.3-8.2) g/dL Assessment and Plan Assessment: I have seen and evaluated the patient today. I Discussed the case with the resident and agree with the resident's findings , I edited the plan where necessary as documented in the resident's note.
[2024-04-30] MEDS ORDERED: IPRATROPIUM-ALBUTEROL 3 ML NEB INHALATION PRN (21:40)
[2024-04-30] MEDS: IPRATROPIUM-ALBUTEROL 3 ML NEB INHALATION STA (22:11)
[2024-04-30] MEDS: LOSARTAN 50 MG TAB PO SCH (22:52)
[2024-04-30] MEDS: amLODIPine 5 MG TAB PO SCH (22:52)
[2024-04-30] MEDS: oxyCODONE-APAP 5-325MG 1 EACH TAB PO SCH (23:27)
[2024-05-01] MEDS: HEPARIN SODIUM 1,000 UN/ML (10ML VL) IV PRN (02:17)
[2024-05-01] MEDS ORDERED: DILTIAZEM 125 MG in SODIUM CHLORIDE 0.9% 100 ML IV SCH (05:37)
[2024-05-01] MEDS: DILTIAZEM 125 MG in SODIUM CHLORIDE 0.9% 100 ML IV SCH (06:55)
[2024-05-01 08:04] LABS: Basophils # (A) 0.1 k/uL (0-0.2); Basophils % (A) 1 %; Eosinophils # (A) 0.2 k/uL (0-0.7); Eosinophils % (A) 3 %; HCT 44.1 % (39.0-53.0); Lymphocytes # (A) 1.5 k/uL (1.0-4.8); Lymphocytes % (A) 20 %; MCH 31.8 pg (25.0-35.0); MCHC 31.8 g/dL (31.0-37.0); MCV 100.2 fL (80.0-100.0); Mean Platelet Volume 9.3; Monocytes # (A) 0.5 k/uL (0-1.0); Monocytes % (A) 6 %; Neutrophils # (A) 4.9 k/uL (1.3-7.7); Neutrophils % (A) 67 %; Platelet Count 149 k/uL (150-450); RBC 4.41 m/uL (4.30-5.90); RDW 13.7 % (11.5-15.5); WBC 7.3 k/uL (3.8-10.6)
[2024-05-01 08:12] LABS: Prothrombin Time 11.3 sec (10.0-12.5)
--- NOTE | 2024-05-01 08:48 | P.PN ---
Subjective Progress Note Date: 05/01/24 68 year old M with PMH of hypertension presents to the ED from urgent care of new diagnosis of A-Fib with RVR. In the ED he underwent extensive evaluation. Vital signs shows BP as high as 117/102, HR as high as 152, T 97.7F, RR 16, 95% on RA. CBC, Coag panel, CMP significant for MCV 100.1, Cl 110, BUN 21, total protein 6.1. Troponin < 0.012, 0.013, < 0.012. TSH 1.41. B12 230. EKG A Fib with RVR rate of 144. CXR cardiomegaly. Patient was started on cardizem and heparin drip and admitted for further workup and management. 05/01 Patient was seen and examined. HR continues to be in the 120-140s. Adamant about wanting to go home even if he needs to signs out AMA. Maintained on Cardizem drip at 10 mg/hr and Heparin drip for AC. Cardiology consulted, Metoprolol 50 mg PO BID added. CBC MCV 100.2, Plt 149. APTT 30.1. General: non toxic, no distress, appears at stated age, morbidly obese Derm: warm, dry Head: atraumatic, normocephalic, symmetric Eyes: EOMI, no lid lag, anicteric sclera Mouth: no lip lesion, mucus membranes moist Cardiovascular: S1S2 irreg, no murmur Lungs: Decreased bilateral, no rhonchi, no rales , no accessory muscle use Ext: no gross muscle atrophy, no edema, no contractures Neuro: No focal neurologic deficits Psych: Alert, oriented, appropriate affect Atrial fibrillation with RVR: Attempt to wean Cardizem drip currently running at 10 mg/hr. Heparin drip for AC monitor daily APTT. TSH wnl. Maintain Mag > 2 and K > 4. Echo is pending. Telemetry monitoring. Cardiology on board. Macrocytosis with low-normal B12: Asymptomatic. Follow up with PCP would benefit from Vit B12 IM injections. Hypertension: Restart Losartan 100 mg PO QHS. Metoprolol added as above. Cardizem drip as above. Heparin drip for DVT prophylaxis. Surrogate decision maker: FULL CODE. I have reviewed the following forestry consultant notes: ED note. I have reviewed the results of the following tests: CBC, Troponin, APTT. I have ordered the following tests: As above. BMP and Mag ordered as add on to day. I have discussed the care of this patient with the following independent historian: I have independently interpreted the following test below: I have discussed the management of this patient with the following physician: Objective - Vital Signs Vital signs: Vital Signs Temp 97.5 F L 04/30/24 22:56 Pulse 147 H 05/01/24 06:40 Resp 27 H 05/01/24 06:40 BP 144/115 05/01/24 06:40 Pulse Ox 95 05/01/24 06:40 FiO2 Intake & Output 04/30/24 05/01/24 05/01/24 18:59 06:59 18:59 Intake Total 138.742 Balance 138.742 Weight 129.274 kg Intake: Intake, IV Titration 138.742 Amount Diltiazem 125 mg In 62.583 Sodium Chloride 0.9% 100 ml @ 5 MG/HR 5 mls/hr IV .Q24H [facility] Rx#:[id number] Heparin Sod,Pork in 0.45% 76.159 NaCl 25,000 unit In 0.45 % NaCl 1 250ml.bag @ 7. 735 UNITS/KG/HR 9.999 mls /hr IV .Q24H [facility] Rx#: [id number] - Labs CBC & Chem 7: 05/01/24 07:36 04/30/24 16:27 Labs: Abnormal Lab Results - Last 24 Hours (Table) 04/30/24 04/30/24 05/01/24 Range/Units 16:27 16:27 00:06 MCV 100.1 H (80.0-100.0) fL Plt Count (150-450) k/uL APTT 30.1 H (22.0-30.0) sec Chloride 110 H (98-107) mmol/L BUN 21 H (9-20) mg/dL Total Protein 6.1 L (6.3-8.2) g/dL 05/01/24 Range/Units 07:36 MCV 100.2 H (80.0-100.0) fL Plt Count 149 L (150-450) k/uL APTT (22.0-30.0) sec Chloride (98-107) mmol/L BUN (9-20) mg/dL Total Protein (6.3-8.2) g/dL
[2024-05-01] MEDS: METOPROLOL TARTRATE 50 MG TAB PO SCH (09:47)
--- NOTE | 2024-05-01 10:05 | P.CRDCN ---
History of Present Illness History of present illness: HISTORY OF PRESENT ILLNESS: This is a 68-year-old male with a past medical history significant for hypertension, hyperlipidemia and obesity. Patient follows in the office with Dr. Hightower but has not been seen in the office since November 2022. We have been asked to see the patient in consultation for A-fib with RVR. Patient examined at the bedside in the emergency room. Patient presented to the hospital with a chief complaint of shortness of breath. He states he has been feeling short of breath for the past 2 to 3 weeks. Patient was found to be in A-fib with RVR. Patient was started on IV heparin and IV Cardizem. He remains in atrial fibrillation with heart rate between [id number]. He is currently on IV Cardizem at 10 mg an hour. Patient denies having a history of atrial fibrillation. He currently denies chest pain or pressure. He reports he is still mildly short of breath this morning. Blood pressure stable. DIAGNOSTICS: - EKG reveals A-fib with RVR. - Chest xray mild cardiomegaly. - Laboratory data: WBC 7.3. Hemoglobin 14.0. Platelet count 149. Sodium 139. Potassium 4.5. BUN 21. Creatinine 0.86. Magnesium 1.8. Troponin negative x 3. TSH 1.410. - Current home cardiac medications include amlodipine 5 mg at night, losartan 100 mg at night. REVIEW OF SYSTEMS: At the time of my exam: CONSTITUTIONAL: Denies fever or chills. HEENT: Denies blurred vision, vision changes, or eye pain. Denies hemoptysis CARDIOVASCULAR: Denies chest pain. Denies orthopnea. Denies PND. Denies palpitations RESPIRATORY: Denies shortness of breath. GASTROINTESTINAL: Denies abdominal pain. Denies nausea or vomiting. HEMATOLOGIC: Denies bleeding disorders. GENITOURINARY: Denies any blood in urine. SKIN: Denies pruitis. Denies rash. PHYSICAL EXAM: VITAL SIGNS: Reviewed. GENERAL: Well-developed in no acute distress. HEENT: Head is normocephalic. Pupils are equal, round. Sclerae anicteric. Mucous membranes of the mouth are moist. Neck supple. No JVD or thyromegaly LUNGS: Respirations even and unlabored. Lungs essentially clear to auscultation bilaterally. HEART: Tachycardic. Irregular rate and rhythm. S1 and S2 heard. ABDOMEN: Soft. Nondistended. Nontender. EXTREMITIES: Normal range of motion. No clubbing or cyanosis. Peripheral pulses intact. No lower extremity edema NEUROLOGIC: Awake and alert. Oriented x 3. ASSESSMENT: Shortness of breath x 3 weeks New onset atrial fibrillation with RVR Hypertension Hyperlipidemia Obesity: BMI 42.1 PLAN: Obtain 2D echo to assess cardiac structure and function Discontinue IV heparin. Begin Eliquis 5 mg twice a day Resume losartan. Discontinue amlodipine Continue IV Cardizem. Wean off as heart rate will tolerate Begin metoprolol tartrate 50 mg twice a day TSH checked and within normal limits Continue telemetry monitoring Further recommendations pending patient course Nurse practitioner note has been reviewed by physician. Signing provider agrees with the documented findings, assessment, and plan of care documented by PUMP HOUSE OPERATOR as a scribe. Past Medical History Past Medical History: GI Bleed, Hypertension History of Any Multi-Drug Resistant Organisms: None Reported Past Surgical History: Orthopedic Surgery Additional Past Surgical History / Comment(s): cataracts Smoking Status: Former smoker Past Alcohol Use History: Occasional Past Drug Use History: None Reported Medications and Allergies Home Medications Medication Instructions Recorded Confirmed Type Losartan Potassium [Cozaar] 100 mg PO HS 11/06/22 04/30/24 History amLODIPine [Norvasc] 5 mg PO HS 11/06/22 04/30/24 History oxyCODONE-APAP 5-325MG [Percocet 0.5 tab PO BID 11/06/22 04/30/24 History 5-325 mg] Ibuprofen [Motrin Ib] 200 mg PO Q8H PRN 04/30/24 04/30/24 History Allergies Allergy/AdvReac Type Severity Reaction Status Date / Time Corticosteroids Allergy Swelling/Shortness Verified 04/30/24 17:43 (Glucocorticoids) of breath/Swelling methylprednisolone Allergy Swelling/Shortness Verified 04/30/24 17:43 of breath/Swelling Physical Exam Vitals: Vital Signs Temp Pulse Pulse Resp BP Pulse Ox 05/01/24 06:40 147 H 27 H 144/115 95 05/01/24 04:00 134 H 21 132/113 95 05/01/24 00:00 117 H 22 108/94 97 04/30/24 22:56 97.5 F L 146 H 16 120/92 94 L 04/30/24 20:00 128 H 23 107/88 95 04/30/24 18:00 152 H 16 130/95 98 04/30/24 17:18 144 H 117/102 04/30/24 17:06 151 H 16 117/102 96 04/30/24 16:30 144 H 04/30/24 16:19 151 H 04/30/24 16:05 97.7 F 72 16 132/92 95 Intake and Output 04/30/24 05/01/24 05/01/24 22:59 06:59 14:59 Intake Total 138.742 Balance 138.742 Intake: Intake, IV Titration 138.742 Amount Diltiazem 125 mg In 62.583 Sodium Chloride 0.9% 100 ml @ 5 MG/HR 5 mls/hr IV .Q24H [facility] Rx#:[id number] Heparin Sod,Pork in 0.45% 76.159 NaCl 25,000 unit In 0.45 % NaCl 1 250ml.bag @ 7. 735 UNITS/KG/HR 9.999 mls /hr IV .Q24H [facility] Rx#: [id number] Other: Weight 129.274 kg Results 05/01/24 07:36 04/30/24 16:27 Cardiac Enzymes 04/30/24 04/30/24 04/30/24 Range/Units 16:27 16:27 20:09 AST 21 (17-59) U/L Troponin I <0.012 0.013 (0.000-0.034) ng/mL 04/30/24 Range/Units 22:13 AST (17-59) U/L Troponin I <0.012 (0.000-0.034) ng/mL Coagulation 04/30/24 05/01/24 05/01/24 Range/Units 16:27 00:06 07:36 PT 12.1 11.3 (10.0-12.5) sec APTT 25.2 30.1 H (22.0-30.0) sec CBC 04/30/24 05/01/24 Range/Units 16:27 07:36 WBC 6.6 7.3 (3.8-10.6) k/uL RBC 4.36 4.41 (4.30-5.90) m/uL Hgb 14.2 14.0 (13.0-17.5) gm/dL Hct 43.6 44.1 (39.0-53.0) % Plt Count 158 149 L (150-450) k/uL Comprehensive Metabolic Panel 04/30/24 Range/Units 16:27 Sodium 139 (137-145) mmol/L Potassium 4.5 (3.5-5.1) mmol/L Chloride 110 H (98-107) mmol/L Carbon Dioxide 25 (22-30) mmol/L BUN 21 H (9-20) mg/dL Creatinine 0.86 (0.66-1.25) mg/dL Glucose 98 (74-99) mg/dL Calcium 8.7 (8.4-10.2) mg/dL AST 21 (17-59) U/L ALT 22 (4-49) U/L Alkaline Phosphatase 54 (38-126) U/L Total Protein 6.1 L (6.3-8.2) g/dL Albumin 3.7 (3.5-5.0) g/dL Current Medications Generic Name Dose Route Start Last Admin Trade Name Freq PRN Reason Stop Dose Admin Acetaminophen 650 mg 04/30/24 17:37 Acetaminophen Tab 325 Mg Tab PO Q6HR PRN Mild Pain or Fever > 100.5 Albuterol/Ipratropium 3 ml 04/30/24 21:40 Ipratropium-Albuterol 3 Ml Neb INHALATION RT-QID PRN Shortness Of Breath Or Wheezing Heparin Sodium (Porcine) 0 unit 04/30/24 17:34 05/01/24 02:17 Heparin Sodium 1,000 Un/Ml (10ml Vl) IV 4,000 unit PER PROTOCOL PRN Administration Low PTT Protocol Heparin Sodium/Sodium Chloride 250 mls @ 9.999 mls/hr 04/30/24 17:45 05/01/24 02:19 25,000 unit/ Sodium Chloride IV 10.735 units/kg/hr .Q24H PETRA 13.878 mls/hr Titration Protocol 7.735 UNITS/KG/HR Diltiazem HCl 125 mg/ Sodium 125 mls @ 10 mls/hr 05/01/24 06:45 05/01/24 06:55 Chloride IV 10 mg/hr .[id number] PETRA 10 mls/hr Administration 10 MG/HR Losartan Potassium 100 mg 04/30/24 22:00 04/30/24 22:52 Losartan 50 Mg Tab PO 100 mg HS PETRA Administration Metoprolol Tartrate 50 mg 05/01/24 09:00 05/01/24 09:47 Metoprolol Tartrate 50 Mg Tab PO 50 mg BID PETRA Administration Naloxone HCl 0.2 mg 04/30/24 17:37 Naloxone 0.4 Mg/Ml 1 Ml Vial IV Q2M PRN Opioid Reversal Ondansetron HCl 4 mg 04/30/24 17:37 Ondansetron 4 Mg/2 Ml Vial IVP Q8HR PRN Nausea And Vomiting Oxycodone/Acetaminophen 0.5 each 04/30/24 23:30 05/01/24 09:48 Oxycodone-Apap 5-325mg 1 Each Tab PO 0.5 each BID PETRA Administration Intake and Output 04/30/24 05/01/24 05/01/24 22:59 06:59 14:59 Intake Total 138.742 Balance 138.742 Intake: Intake, IV Titration 138.742 Amount Diltiazem 125 mg In 62.583 Sodium Chloride 0.9% 100 ml @ 5 MG/HR 5 mls/hr IV .Q24H [facility] Rx#:[id number] Heparin Sod,Pork in 0.45% 76.159 NaCl 25,000 unit In 0.45 % NaCl 1 250ml.bag @ 7. 735 UNITS/KG/HR 9.999 mls /hr IV .Q24H [facility] Rx#: [id number] Other: Weight 129.274 kg 05/01/24 07:36 04/30/24 16:27
[2024-05-01] MEDS: APIXABAN 5 MG TAB PO SCH (10:12)
[2024-05-01 10:54] LABS: African American GFR (CKD) >90 (>60 ml/min/1.73 sqM); Anion Gap 1 mmol/L; Blood Urea Nitrogen 17 mg/dL (9-20); Calcium 8.8 mg/dL (8.4-10.2); Carbon Dioxide 27 mmol/L (22-30); Chloride 111 mmol/L (98-107); Glucose 103 mg/dL (74-99); Magnesium 1.8 mg/dL (1.6-2.3); Non-African American GFR(CKD) 89 (>60 ml/min/1.73 sqM); Potassium 4.4 mmol/L (3.5-5.1); Sodium 139 mmol/L (137-145)
[2024-05-01 12:05] LABS: Glucose,Whole Blood 144 mg/dL (70-110)
[2024-05-01] MEDS: DEXTROSE 5% IN WATER 100 ML with AMIODARONE 150 MG IV ONE (13:49)
[2024-05-01] MEDS: AMIODARONE 360 MG in DEXTROSE 5% IN WATER 200 ML IV ONE (14:11)
[2024-05-01] MEDS: ONDANSETRON 4 MG/2 ML VIAL IVP PRN (14:25)
--- NOTE | 2024-05-01 15:29 | CA ---
Transthoracic Echo Report Name: Jarrod Muñiz Age: 68 Gender: M : 1955 Exam Date: 05/01/2024 09:24 Exam Location: [facility] Ht (in): 69 Wt (lb): 285 Ordering Physician: Matt Del Cid MD Attending/Referring Phys: Vmware Systems Administrator Raegan Henry RDCS Procedure CPT: Indications: a-fib with RVR Cardiac Hx: Technical Quality: Very technically difficult study Contrast 1: Definity Total Dose (mL): 2 Contrast 2: Total Dose (mL): MEASUREMENTS (Male / Female) Normal Values 2D ECHO LV Diastolic Diameter PLAX 6.0 cm 4.2 - 5.9 / 3.9 - 5.3 cm LV Systolic Diameter PLAX 5.2 cm IVS Diastolic Thickness 1.6 cm 0.6 - 1.0 / 0.6 - 0.9 cm LVPW Diastolic Thickness 1.3 cm 0.6 - 1.0 / 0.6 - 0.9 cm LV Relative Wall Thickness 0.5 RV Internal Dim ED PLAX 3.5 cm LVOT Diameter 2.3 cm LA Systolic Diameter LX 4.7 cm 3.0 - 4.0 / 2.7 - 3.8 cm LA Volume 105.2 cm??? 18 - 58 / 22 - 52 cm??? LA Volume Index 40.9 cm???/m??? 16 - 28 cm???/m??? M-MODE Aortic Root Diameter MM 3.9 cm AV Cusp Separation MM 1.8 cm DOPPLER AV Peak Velocity 152.5 cm/s AV Peak Gradient 9.3 mmHg AV Mean Velocity 102.5 cm/s AV Mean Gradient 5.4 mmHg AV Velocity Time Integral 25.9 cm AI Peak Velocity 281.5 cm/s AI Peak Gradient 31.7 mmHg AI Pressure Half Time 482.3 ms LVOT Peak Velocity 107.9 cm/s LVOT Peak Gradient 4.7 mmHg LVOT Velocity Time Integral 17.6 cm LVOT Stroke Volume 70.4 cm??? LVOT Stroke Volume Index 29.3 ml/m??? LVOT Cardiac Index 3531.4 cm???/min???m??? AV Area Cont Eq vti 2.7 cm??? AV Area Cont Eq pk 2.8 cm??? MV Area PHT 5.0 cm??? MV Deceleration Time 214.5 ms TR Peak Velocity 325.0 cm/s TR Peak Gradient 42.2 mmHg Right Ventricular Systolic Press 57.2 mmHg FINDINGS Left Ventricle Left ventricular ejection fraction is estimated at 15 %. Moderate concentric left ventricular hypertrophy. Mild left ventricular dilatation. Severely reduced global left ventricular systolic function. Global left ventricular hypokinesis. Right Ventricle Mild right ventricular dilatation. Severe pulmonary hypertension. Right ventricular systolic pressure estimated at 57 mm hg. Right Atrium Severe right atrial dilatation. Left Atrium Mildly increased left atrial diameter. Severely increased left atrial volume. Mildly increased left atrial area. Mitral Valve Mitral annular calcification. Moderate mitral regurgitation. Aortic Valve Aortic valve not well visualized. Mild aortic regurgitation. Mild aortic stenosis with a peak gradient of 24 mmHg and a mean gradient of 10 mmHg. Tricuspid Valve Structurally normal tricuspid valve. Moderate tricuspid regurgitation. Pulmonic Valve Pulmonic valve not well visualized. Pericardium No pericardial effusion. Aorta Mild aortic dilatation at the level of the sinuses of valsalva 39 mm CONCLUSIONS Left ventricular ejection fraction 15% Moderately increased left ventricular wall thickness RVSP 57 Moderately dilated left atrium Mild aortic regurgitation Mild aortic stenosis Moderate tricuspid regurgitation Previewed by: Dr. Juan Hightower DO (Electronically Signed) Final Date: 01 May 2024 15:27
[2024-05-01] MEDS: AMIODARONE 450 MG in DEXTROSE 5% IN WATER 250 ML IV SCH (21:21)
[2024-05-02] MEDS: AMIODARONE 200 MG TAB PO SCH (09:27)
[2024-05-02] MEDS: METOPROLOL TARTRATE 50 MG TAB PO SCH (09:31)
--- NOTE | 2024-05-02 10:42 | P.PN ---
Subjective HISTORY OF PRESENT ILLNESS: This is a 68-year-old male with a past medical history significant for hypertension, hyperlipidemia and obesity. Patient follows in the office with Dr. Hightower but has not been seen in the office since November 2022. We have been asked to see the patient in consultation for A-fib with RVR. Patient examined at the bedside in the emergency room. Patient presented to the hospital with a chief complaint of shortness of breath. He states he has been feeling short of breath for the past 2 to 3 weeks. Patient was found to be in A-fib with RVR. Patient was started on IV heparin and IV Cardizem. He remains in atrial fibrillation with heart rate between [id number]. He is currently on IV Cardizem at 10 mg an hour. Patient denies having a history of atrial fibrillation. He currently denies chest pain or pressure. He reports he is still mildly short of breath this morning. Blood pressure stable. DIAGNOSTICS: - EKG reveals A-fib with RVR. - Chest xray mild cardiomegaly. - Laboratory data: WBC 7.3. Hemoglobin 14.0. Platelet count 149. Sodium 139. Potassium 4.5. BUN 21. Creatinine 0.86. Magnesium 1.8. Troponin negative x 3. TSH 1.410. - Current home cardiac medications include amlodipine 5 mg at night, losartan 100 mg at night. 05/02/2024 Patient examined this morning at the bedside. Patient currently denies chest pain or pressure. He denies shortness of breath. He remains in atrial fibr illation with heart rate between [id number]. He is currently on a Cardizem drip at 10 mg an hour. Patient is also on IV amiodarone. Echocardiogram close completed revealing ejection fraction of 15%. PHYSICAL EXAM: VITAL SIGNS: Reviewed. GENERAL: Well-developed in no acute distress. HEENT: Head is normocephalic. Pupils are equal, round. Sclerae anicteric. Mucous membranes of the mouth are moist. Neck supple. No JVD or thyromegaly LUNGS: Respirations even and unlabored. Lungs essentially clear to auscultation bilaterally. HEART: Tachycardic. Irregular rate and rhythm. S1 and S2 heard. ABDOMEN: Soft. Nondistended. Nontender. EXTREMITIES: Normal range of motion. No clubbing or cyanosis. Peripheral pulses intact. No lower extremity edema NEUROLOGIC: Awake and alert. Oriented x 3. ASSESSMENT: Shortness of breath x 3 weeks New onset atrial fibrillation with RVR New onset cardiomyopathy, 15%, ischemic versus nonischemic, may be tachycardia induced secondary to A-fib with RVR Hypertension Hyperlipidemia Obesity: BMI 42.1 Previous alcohol use, none within the past year per patient PLAN: Continue telemetry monitoring Continue current cardiac medications Decrease losartan to 25 mg at night to allow for increase in beta-paramjit therapy Increase metoprolol to tartrate to 100 mg 3 times a day Begin amiodarone 400 mg twice a day after IV infusion has completed Decrease IV Cardizem to 5 mg an hour. If heart rate will tolerate, wean off completely due to patient's cardiomyopathy Patient to undergo cardiac catheterization with Dr. Hightower on Saturday Will hold Eliquis at this time and resume patient back on IV heparin due to pending cardiac catheterization on Saturday Further recommendations pending patient course Nurse practitioner note has been reviewed by physician. Signing provider agrees with the documented findings, assessment, and plan of care documented by SIGNAL SUPERVISOR as a scribe. Objective - Vital Signs Vital signs: Vital Signs Temp 97.6 F 05/02/24 03:53 Pulse 98 05/02/24 03:53 Resp 18 05/02/24 03:53 BP 109/88 05/02/24 03:53 Pulse Ox 94 L 05/02/24 03:53 FiO2 Intake & Output 05/01/24 05/02/24 05/02/24 18:59 06:59 18:59 Intake Total 118.916 110.499 Output Total 200 Balance 118.916 -89.501 Weight 133.7 kg Intake: Intake, IV Titration 118.916 110.499 Amount Diltiazem 125 mg In 118.916 110.499 Sodium Chloride 0.9% 100 ml @ 10 MG/HR 10 mls/hr IV .[id number] [facility] Rx#: [id number] Output: Urine 200 Other: Voiding Method Toilet - Labs CBC & Chem 7: 05/01/24 07:36 05/01/24 07:36 Labs: Abnormal Lab Results - Last 24 Hours (Table) 05/01/24 05/01/24 Range/Units 07:36 12:02 Chloride 111 H (98-107) mmol/L Glucose 103 H (74-99) mg/dL POC Glucose (mg/dL) 144 H (70-110) mg/dL
--- NOTE | 2024-05-02 11:26 | P.PN ---
Subjective Progress Note Date: 05/02/24 68 year old M with PMH of hypertension presents to the ED from urgent care of new diagnosis of A-Fib with RVR. In the ED he underwent extensive evaluation. Vital signs shows BP as high as 117/102, HR as high as 152, T 97.7F, RR 16, 95% on RA. CBC, Coag panel, CMP significant for MCV 100.1, Cl 110, BUN 21, total protein 6.1. Troponin < 0.012, 0.013, < 0.012. TSH 1.41. B12 230. EKG A Fib with RVR rate of 144. CXR cardiomegaly. Patient was started on cardizem and heparin drip and admitted for further workup and management. 05/01 Patient was seen and examined. HR continues to be in the 120-140s. Adamant about wanting to go home even if he needs to signs out AMA. Maintained on Cardizem drip at 10 mg/hr and Heparin drip for AC. Cardiology consulted, Metoprolol 50 mg PO BID added. CBC MCV 100.2, Plt 149. APTT 30.1. 05/02 Patient was seen and examined this morning. Angry about heart cath being postponed until Saturday. Threatening to leave AMA understanding risk of sudden . Started on Amiodarone drip yesterday currently running at 0.5 mg/min. Heparin drip switched to Eliquis. Cardizem drip running at 10 mg/hr. HR in the 90-100s on telemetry. Echocardiogram shows EF of 15%. Cardiology note reviewed, decrease Cardizem drip to 5 mg/hr, increase Metoprolol to 100 mg PO TID, start Amiodarone 400 mg PO BID after IV infusion is complete, discontinue Eliquis and restart Heparin drip for heart cath on Saturday. General: non toxic, no distress, appears at stated age, morbidly obese Derm: warm, dry Head: atraumatic, normocephalic, symmetric Eyes: EOMI, no lid lag, anicteric sclera Mouth: no lip lesion, mucus membranes moist Cardiovascular: S1S2 irreg, no murmur Lungs: Decreased bilateral, no rhonchi, no rales , no accessory muscle use Ext: no gross muscle atrophy, no edema, no contractures Neuro: No focal neurologic deficits Psych: Alert, oriented, appropriate affect Atrial fibrillation with RVR: Started on Amiodarone drip at 0.5 mg/hr, Amiodarone 400 mg PO BID. Cardizem drip decreased to 5 mg/hr. Eliquis switched back to Heparin drip with plans of cath of Saturday. Metoprolol increased to 100 mg PO BID. TSH wnl. Maintain Mag > 2 and K > 4. Echo as above. Telemetry monitoring. Cardiology on board. HFrEF: New diagnosis. Plans for heart cath on Saturday. Metoprolol as above. Losartan 25 mg PO QHS. Would benefit from Aldactone or Entresto, Farxiga and LifeVest. Macrocytosis with low-normal B12: Asymptomatic. Follow up with PCP would benefit from Vit B12 IM injections. Hypertension: Losartan 25 mg PO QHS. Metoprolol as above. Cardizem drip as above. Eliquis for DVT prophylaxis. Surrogate decision maker: FULL CODE. I have reviewed the following production consultant notes: Cardiology note. I have reviewed the results of the following tests: Echo. I have ordered the following tests: Monitor APTT daily while on Heparin. I have discussed the care of this patient with the following independent historian: RN. I have independently interpreted the following test below: I have discussed the management of this patient with the following physician: Susana IVERSON Patient threatening to leave AMA. He is frustrated about being in the hospital. We did have a lengthy discussion about the risks of leaving AMA including sudden . Objective - Vital Signs Vital signs: Vital Signs Temp 97.6 F 05/02/24 03:53 Pulse 98 05/02/24 03:53 Resp 18 05/02/24 03:53 BP 109/88 05/02/24 03:53 Pulse Ox 94 L 05/02/24 03:53 FiO2 Intake & Output 05/01/24 05/02/24 05/02/24 18:59 06:59 18:59 Intake Total 118.916 110.499 Output Total 200 Balance 118.916 -89.501 Weight 133.7 kg Intake: Intake, IV Titration 118.916 110.499 Amount Diltiazem 125 mg In 118.916 110.499 Sodium Chloride 0.9% 100 ml @ 10 MG/HR 10 mls/hr IV .[id number] [facility] Rx#: [id number] Output: Urine 200 Other: Voiding Method Toilet - Labs CBC & Chem 7: 05/01/24 07:36 05/01/24 07:36 Labs: Abnormal Lab Results - Last 24 Hours (Table) 05/01/24 05/01/24 Range/Units 07:36 12:02 Chloride 111 H (98-107) mmol/L Glucose 103 H (74-99) mg/dL POC Glucose (mg/dL) 144 H (70-110) mg/dL
[2024-05-02] MEDS: HEPARIN SOD,PORK IN 0.45% NACL 25,000 UNIT in 0.45% NACL 1 250ML.BAG IV SCH (12:44)
[2024-05-02] MEDS: HEPARIN SODIUM 1,000 UN/ML (10ML VL) IV ONE (13:00)
[2024-05-02] MEDS: ACETAMINOPHEN TAB 325 MG TAB PO PRN (13:39)
[2024-05-02] MEDS: ALPRAZolam 0.5 MG TAB PO PRN (18:33)
[2024-05-02] MEDS: LOSARTAN 25 MG TAB PO SCH (21:00)
[2024-05-02 21:12] LABS: Glucose,Whole Blood 127 mg/dL (70-110)
[2024-05-02] MEDS: HEPARIN SODIUM 1,000 UN/ML (10ML VL) IV PRN (21:32)
[2024-05-03 04:45] LABS: Basophils % (A) 0 %; Eosinophils # (A) 0.2 k/uL (0-0.7); Eosinophils % (A) 3 %; HCT 42.1 % (39.0-53.0); HGB 13.4 gm/dL (13.0-17.5); Lymphocytes # (A) 1.6 k/uL (1.0-4.8); Lymphocytes % (A) 22 %; MCH 32.4 pg (25.0-35.0); MCHC 31.9 g/dL (31.0-37.0); MCV 101.6 fL (80.0-100.0); Macrocytosis Slight; Mean Platelet Volume 9.5; Monocytes # (A) 0.5 k/uL (0-1.0); Monocytes % (A) 6 %; Neutrophils % (A) 67 %; Platelet Count 151 k/uL (150-450); RBC 4.14 m/uL (4.30-5.90); RDW 13.7 % (11.5-15.5); WBC 7.5 k/uL (3.8-10.6)
[2024-05-03 05:10] LABS: INR 1.1 (<1.2); Prothrombin Time 12.2 sec (10.0-12.5)
--- NOTE | 2024-05-03 10:01 | P.PN ---
Subjective HISTORY OF PRESENT ILLNESS: This is a 68-year-old male with a past medical history significant for hypertension, hyperlipidemia and obesity. Patient follows in the office with Dr. Hightower but has not been seen in the office since November 2022. We have been asked to see the patient in consultation for A-fib with RVR. Patient examined at the bedside in the emergency room. Patient presented to the hospital with a chief complaint of shortness of breath. He states he has been feeling short of breath for the past 2 to 3 weeks. Patient was found to be in A-fib with RVR. Patient was started on IV heparin and IV Cardizem. He remains in atrial fibrillation with heart rate between [id number]. He is currently on IV Cardizem at 10 mg an hour. Patient denies having a history of atrial fibrillation. He currently denies chest pain or pressure. He reports he is still mildly short of breath this morning. Blood pressure stable. DIAGNOSTICS: - EKG reveals A-fib with RVR. - Chest xray mild cardiomegaly. - Laboratory data: WBC 7.3. Hemoglobin 14.0. Platelet count 149. Sodium 139. Potassium 4.5. BUN 21. Creatinine 0.86. Magnesium 1.8. Troponin negative x 3. TSH 1.410. - Current home cardiac medications include amlodipine 5 mg at night, losartan 100 mg at night. 05/02/2024 Patient examined this morning at the bedside. Patient currently denies chest pain or pressure. He denies shortness of breath. He remains in atrial fibr illation with heart rate between [id number]. He is currently on a Cardizem drip at 10 mg an hour. Patient is also on IV amiodarone. Echocardiogram completed revealing ejection fraction of 15%. 05/03/2024 Patient examined this morning at the bedside. Patient currently denies chest pain or pressure. He denies shortness of breath. He remains in atrial fibrillation with RVR. Blood pressures are soft with a systolic in the 90s this morning. PHYSICAL EXAM: VITAL SIGNS: Reviewed. GENERAL: Well-developed in no acute distress. HEENT: Head is normocephalic. Pupils are equal, round. Sclerae anicteric. Mucous membranes of the mouth are moist. Neck supple. No JVD or thyromegaly LUNGS: Respirations even and unlabored. Lungs essentially clear to auscultation bilaterally. HEART: Tachycardic. Irregular rate and rhythm. S1 and S2 heard. ABDOMEN: Soft. Nondistended. Nontender. EXTREMITIES: Normal range of motion. No clubbing or cyanosis. Peripheral pulses intact. No lower extremity edema NEUROLOGIC: Awake and alert. Oriented x 3. ASSESSMENT: Shortness of breath x 3 weeks New onset atrial fibrillation with RVR New onset cardiomyopathy, 15%, ischemic versus nonischemic, may be tachycardia induced secondary to A-fib with RVR Hypertension Hyperlipidemia Obesity: BMI 42.1 Previous alcohol use, none within the past year per patient PLAN: Continue telemetry monitoring Continue current cardiac medications Losartan decreased to 25 mg at night to allow for increase in beta-paramjit ther apy Continue metoprolol tartrate to 100 mg 3 times a day Continue oral amiodarone IV Cardizem has been weaned off Originally plan was for cardiac catheterization on Saturday to evaluate cardiomyopathy. However patient is having poor rate control despite medication changes. We will plan for MARK and cardioversion tomorrow with Dr. Hightower. Patient will require cardiac catheterization on an outpatient basis Discontinue IV heparin and resume Eliquis 5 mg twice a day Possible LifeVest at discharge Further recommendations pending patient course Nurse practitioner note has been reviewed by physician. Signing provider agrees with the documented findings, assessment, and plan of care documented by QUALITY CONTROL ANALYST as a scribe. Objective - Vital Signs Vital signs: Vital Signs Temp 97.7 F 05/03/24 08:00 Pulse 122 H 05/03/24 08:00 Resp 16 05/03/24 08:00 BP 97/57 05/03/24 08:00 Pulse Ox 92 L 05/03/24 08:00 FiO2 Intake & Output 05/02/24 05/03/24 05/03/24 18:59 06:59 18:59 Intake Total 120 748.644 120 Output Total 0 200 Balance 120 548.644 120 Weight 134.3 kg Intake: Intake, IV Titration 208.644 Amount Heparin Sod,Pork in 0.45% 208.644 NaCl 25,000 unit In 0.45 % NaCl 1 250ml.bag @ 7. 479 UNITS/KG/HR 9.999 mls /hr IV .Q24H [facility] Rx#: [id number] Oral 120 540 120 Output: Gastric Drainage 0 Urine 0 200 Stool 0 Urine/Stool Mix 0 Emesis 0 Oral Regurgitation 0 Other 0 Other: Voiding Method Toilet Toilet # Voids 0 1 # Bowel Movements 0 - Labs CBC & Chem 7: 05/03/24 04:21 05/01/24 07:36 Labs: Abnormal Lab Results - Last 24 Hours (Table) 05/02/24 05/03/24 05/03/24 Range/Units 21:10 04:21 04:21 RBC 4.14 L (4.30-5.90) m/uL MCV 101.6 H (80.0-100.0) fL APTT 50.9 H (22.0-30.0) sec POC Glucose (mg/dL) 127 H (70-110) mg/dL
[2024-05-03] MEDS: APIXABAN 5 MG TAB PO SCH (12:03)
[2024-05-03] MEDS: CYANOCOBALAMIN 1,000 MCG/ML 1 ML VIAL IM SCH (12:04)
--- NOTE | 2024-05-03 12:37 | P.PN ---
Subjective Progress Note Date: 05/03/24 68 year old M with PMH of hypertension presents to the ED from urgent care of new diagnosis of A-Fib with RVR. In the ED he underwent extensive evaluation. Vital signs shows BP as high as 117/102, HR as high as 152, T 97.7F, RR 16, 95% on RA. CBC, Coag panel, CMP significant for MCV 100.1, Cl 110, BUN 21, total protein 6.1. Troponin < 0.012, 0.013, < 0.012. TSH 1.41. B12 230. EKG A Fib with RVR rate of 144. CXR cardiomegaly. Patient was started on cardizem and heparin drip and admitted for further workup and management. Metoprolol PO was started. Amiodarone drip was started for better HR control. Initially switched from Heparin drip to Eliquis, Echo came back with EF of 15%, switched back to Heparin drip in preparation for cardiac cath on Saturday. 05/01 HR continues to be in the 120-140s. Adamant about wanting to go home even if he needs to signs out AMA. Maintained on Cardizem drip at 10 mg/hr and Heparin drip for AC. Cardiology consulted, Metoprolol 50 mg PO BID added. 05/02 Angry about heart cath being postponed until Saturday. Threatening to leave AMA understanding risk of sudden . Started on Amiodarone drip yesterday currently running at 0.5 mg/min. Heparin drip switched to Eliquis. Cardizem drip running at 10 mg/hr. HR in the 90-100s on telemetry. Echocardiogram shows EF of 15%. Cardiology note reviewed, decrease Cardizem drip to 5 mg/hr, increase Metoprolol to 100 mg PO TID, start Amiodarone 400 mg PO BID after IV infusion is complete, discontinue Eliquis and restart Heparin drip for heart cath on Saturday. 05/03 Patient was seen and examined. HR persistently elevated. Patient has agreed to stay for now. Cardizem drip on hold as of last night. Currently on Metoprolol 100 mg PO TID and Amiodarone 400 mg PO BID. Cardiology recommends discontinuing Heparin drip and starting Eliquis, plans for MARK cardioversion tomorrow with cardiac cath outpatient, LifeVest on discharge. CBC RBC 4.14, MCV 101.6. APTT 50.9. General: non toxic, no distress, appears at stated age, morbidly obese Derm: warm, dry Head: atraumatic, normocephalic, symmetric Eyes: EOMI, no lid lag, anicteric sclera Mouth: no lip lesion, mucus membranes moist Cardiovascular: S1S2 irreg, no murmur Lungs: Decreased bilateral, no rhonchi, no rales , no accessory muscle use Ext: no gross muscle atrophy, no edema, no contractures Neuro: No focal neurologic deficits Psych: Alert, oriented, appropriate affect Atrial fibrillation with RVR: Amiodarone drip transitioned to Amiodarone 400 mg PO BID. Metoprolol 100 mg PO TID. Cardizem drip discontinued. Heparin drip switched to Eliquis, plans for MARK cardioversion tomorrow with outpatient cardiac cath. Monitor APTT. TSH wnl. Maintain Mag > 2 and K > 4. Echo as above. Telemetry monitoring. Cardiology on board. HFrEF: New diagnosis. EF 15%. Plans for heart cath on outpatient basis. Metoprolol as above. Losartan 25 mg PO QHS. Would benefit from Aldactone or Entresto, Farxiga and LifeVest. Macrocytosis with low-normal B12: Asymptomatic. Start Vit B12 1000 mcg IM daily. Hypertension now Hypotensive: Losartan 25 mg PO QHS. Metoprolol as above. Anxiety: Xanax 0.5 mg PO BID PRN. Heparin drip for DVT prophylaxis. Surrogate decision maker: FULL CODE. I have reviewed the following application development consultant notes: Cardiology note. I have reviewed the results of the following tests: CBC, Coag panel. I have ordered the following tests: Monitor APTT daily while on Heparin. I have discussed the care of this patient with the following independent historian: RN, patient appears anxious, start Xanax 0.5 mg PO BID PRN. I have independently interpreted the following test below: I have discussed the management of this patient with the following physician: Objective - Vital Signs Vital signs: Vital Signs Temp 97.7 F 05/02/24 20:00 Pulse 129 H 05/03/24 04:00 Resp 16 05/03/24 04:00 BP 89/61 05/03/24 04:00 Pulse Ox 95 05/03/24 04:00 FiO2 Intake & Output 05/02/24 05/03/24 05/03/24 18:59 06:59 18:59 Intake Total 120 748.644 Output Total 0 200 Balance 120 548.644 Weight 134.3 kg Intake: Intake, IV Titration 208.644 Amount Heparin Sod,Pork in 0.45% 208.644 NaCl 25,000 unit In 0.45 % NaCl 1 250ml.bag @ 7. 479 UNITS/KG/HR 9.999 mls /hr IV .Q24H [facility] Rx#: [id number] Oral 120 540 Output: Gastric Drainage 0 Urine 0 200 Stool 0 Urine/Stool Mix 0 Emesis 0 Oral Regurgitation 0 Other 0 Other: Voiding Method Toilet Toilet # Voids 0 1 # Bowel Movements 0 - Labs CBC & Chem 7: 05/03/24 04:21 05/01/24 07:36 Labs: Abnormal Lab Results - Last 24 Hours (Table) 05/02/24 05/03/24 05/03/24 Range/Units 21:10 04:21 04:21 RBC 4.14 L (4.30-5.90) m/uL MCV 101.6 H (80.0-100.0) fL APTT 50.9 H (22.0-30.0) sec POC Glucose (mg/dL) 127 H (70-110) mg/dL
[2024-05-03] MEDS: CALCIUM CARBONATE 500 MG CHEWABLE PO PRN (16:08)
[2024-05-03] MEDS: FAMOTIDINE 20 MG TAB PO SCH (16:08)
[2024-05-03 21:42] LABS: Glucose,Whole Blood 136 mg/dL (70-110)
--- NOTE | 2024-05-04 10:16 | CDI ---
Documentation Clarification Form Date: 05/04/2024 09:51:16 AM From: Nina Clark RN, CCDS Phone: [phone] Admit Date: 04/30/2024 05:37:00 PM Patient Name: Jarrod Muñiz Visit Number: [id number] Discharge Date: ATTENTION: The Clinical Documentation Specialists (CDI) and [facility] Coding Staff appreciate your assistance in clarifying documentation. Please respond to the clarification below the line at the bottom and electronically sign. The CDI & [facility] Coding staff will review the response and follow-up if needed. Please note: Queries are made part of the Legal Health Record. If you have any questions, please contact the author of this message via ITS. Dr. Juan Hightower Atrial Fibrillation is documented in the Cardiology consult start on 05/01/24. Additional clarification regarding the type of atrial fibrillation is requested. Ongoing treatment 04/30/24-05/04/24 History/Risk Factors: GI Bleed, Hypertension Clinical Indicators: new onset atrial fibrillation with RVR, no history of atrial fibrillation. He reports shortness of breath with left upper extremity weakness and dizziness. EKG/telemetry: Atrial fibrillation with RVR 144 BPM, nonspecific T wave abnormality. Chest x-ray shows mild cardiomegaly with clear lung marvin. VS: 130/95 152 16 97.7 98% RA Labs: WBC 7.3 NA+ 139, K+ 4.5, BUN 21, Creatinine 0.86, Troponin <0.012 05/04 EKG: Atrial Fibrillation with rapid ventricular response 116 BPM Treatment: Cardiac/Telemetry monitoring Amiodarone Drip transition to Amiodarone 400 MG PO BID Metoprolol 100 MG PO TID Cardizem drip DC Heparin drip DC Eliquis 5 MG PO BID 05/03-05/04 Please clarify the type of atrial fibrillation, if known: [ ] Chronic [ ] Permanent [ ] Paroxysmal [ X ] Persistent [ ] Other, please specify [ ] Unable to determine (Template Last Revised: February 2021) MTDD
[2024-05-04 12:34] LABS: Glucose,Whole Blood 101 mg/dL (70-110)
[2024-05-04] MEDS: BENZOCAINE SPRAY 1 CAN TOPICAL ONE ×2 (13:40→14:10)
[2024-05-04] MEDS: IV FLUID CONTINUATION 1,000 ML IV ONE (13:48)
[2024-05-04] MEDS: SODIUM CHLORIDE 0.9% 500 ML DEHP FREE BAG IV STA (13:50)
[2024-05-04] MEDS ORDERED: ETOMIDATE 2 MG/ML 10 ML VIAL ONE (14:12)
[2024-05-04] MEDS ORDERED: PROPOFOL 10 MG/ML 20 ML VIAL IV ONE (14:12)
[2024-05-04] MEDS ORDERED: LIDOCAINE 1% INJ 10MG/ML (20 ML MDV) ONE (14:12)
--- NOTE | 2024-05-04 16:09 | P.TEE ---
Description of Procedure(s): Procedure performed: Transesophageal Echocardiogram with color flow doppler, pulsed wave doppler and continuous wave doppler, synchronized cardioversion Moderate conscious sedation: Moderate conscious sedation was supplied by anesthesia, see separate report. Complications: none Indications: atrial fibrillation PROCEDURE: After the risks, benefits and alternatives of the above mentioned procedure was explained in detail with the patient, informed consent was obtained. Patient was brought to the lab in a fasting state. Patient was given sedation by anesthesia, see separate report. The throat was sprayed with Hurricane to anesthetize the throat. A lubricated Omni probe was then introduced into the esophagus and stomach and multiple views were obtained. 2D echo with color flow doppler, pulsed wave doppler and continuous wave doppler was utilized. Agitated saline bubbles were injected to assess for any intra-atrial shunt. The probe was then removed. There was no thrombus noted and therefore patient underwent synchronized cardioversion x 1 with 200J with resultant sinus rhythm. Patient tolerated the procedure well. Patient was transferred to the post procedure area in stable and satisfactory condition. FINDINGS: 1. The aortic valve is tricuspid and function normally with mild aortic sclerosis without significant aortic stenosis. 2. The mitral valve appears be normal with mild to moderate regurgitation. 3. Tricuspid valve appears to be normal. 4. The interatrial septum is intact. No evidence of PFO. 5. Left atrial appendage is free of clot. 6. Left ventricular EF 25%
--- NOTE | 2024-05-04 16:35 | P.PN ---
Subjective Progress Note Date: 05/04/24 Subjective: Patient seen at bedside. No significant overnight events. Patient had no complaints. Pertinent positives and negatives discussed above, a complete review of systems was preformed and all the other sytems were negative. Vitals Signs Reveiwed. General: non toxic, no distress, appears at stated age, morbidly obese Derm: warm, dry Head: atraumatic, normocephalic, symmetric Eyes: EOMI, no lid lag, anicteric sclera Mouth: no lip lesion, mucus membranes moist Cardiovascular: S1S2 irreg, no murmur Lungs: Decreased bilateral, no rhonchi, no rales , no accessory muscle use Ext: no gross muscle atrophy, no edema, no contractures Neuro: No focal neurologic deficits Psych: Alert, oriented, appropriate affect Data Reveiwed Today: Patient Labs: APTT 26.1 and POC glucose 101 Imaging: MARK: Aortic valve is tricuspid and functions normally with mild aortic sclerosis without significant aortic stenosis, mitral valve appears to be normal with mild regurgitation, tricuspid valve appears to be normal, interatrial septum is intact no evidence of PFO, left atrial appendage is free of clot, and left ventricular EF 25%. Assesment and Plan: Atrial fibrillation with RVR: Continue amiodarone 400 mg p.o. twice daily Continue metoprolol 100 mg p.o. 3 times daily Continue Eliquis APTT 26.1 Underwent cardioversion via MARK, now cardioverted Continue telemetry monitoring and follow-up on further cardiology recommendations Continue to maintain mag greater than 2 and potassium greater than 4, TSH within normal limits HFrEF: EF 15% from echo, and 25% from MARK Cardiac cath planned for outpatient Continue losartan 25 mg p.o. nightly Patient will receive LifeVest before discharge Macrocytic anemia: Asymptomatic Low normal B12, continue vitamin B12 1000 mcg IM daily. Hypertension now hypotensive: Continue losartan 25 mg p.o. nightly and metoprolol 100 mg p.o. 3 times daily Anxiety: Continue Xanax 0.5 mg p.o. twice daily as needed. F none E cyanocobalamine, calcium carbonate N heart healthy diet A normally ambulates at home without assistance DVT ppx: Eliquis Code Status: Full code Anticipated discharge place: To home Anticipated discharge time: Pending clinical course, most likely tomorrow (05/05) I have seen and evaluated the patient today. Discussed with the resident and agree with the residents subjective and objective as documented in the resident's note. The assessment and plan was discussed and outlined as below. Patient was seen in the AM. Plans for MAKR cardioversion today. Atrial fibrillation with RVR: Amiodarone drip transitioned to Amiodarone 400 mg PO BID. Metoprolol 100 mg PO TID. Cardizem drip discontinued. Heparin drip switched to Eliquis, plans for MARK cardioversion today with outpatient cardiac cath. Monitor APTT. TSH wnl. Maintain Mag > 2 and K > 4. Echo as above. Telemetry monitoring. Cardiology on board. HFrEF: New diagnosis. EF 15%. Plans for heart cath on outpatient basis. Metoprolol as above. Losartan 25 mg PO QHS. Would benefit from Aldactone, possible switch from Losartan to Entresto, Farxiga and LifeVest. Macrocytosis with low-normal B12: Asymptomatic. Vit B12 1000 mcg IM daily. Hypertension now Hypotensive: Losartan 25 mg PO QHS. Metoprolol as above. Anxiety: Xanax 0.5 mg PO BID PRN. Objective - Vital Signs Vital signs: Vital Signs Temp 98.8 F 05/04/24 04:00 Pulse 113 H 05/04/24 04:00 Resp 14 05/04/24 04:00 BP 106/71 05/04/24 04:00 Pulse Ox 94 L 05/04/24 04:00 FiO2 Intake & Output 05/03/24 05/04/24 05/04/24 18:59 06:59 18:59 Intake Total 592 Output Total 0 Balance 592 Weight 133.7 kg Intake: Oral 592 Output: Stool 0 Other: Voiding Method Toilet Toilet # Voids 3 4 - Labs CBC & Chem 7: 05/03/24 04:21 05/01/24 07:36 Labs: Abnormal Lab Results - Last 24 Hours (Table) 05/03/24 Range/Units 21:41 POC Glucose (mg/dL) 136 H (70-110) mg/dL
[2024-05-04] MEDS: SODIUM CHLORIDE 0.9% 500 ML BAG IV STA (16:36)
[2024-05-05] MEDS: ALPRAZolam 0.5 MG TAB PO STA (05:29)
[2024-05-05 08:46] LABS: HCT 41.8 % (39.0-53.0); Hypochromasia Slight; MCH 32.1 pg (25.0-35.0); MCHC 31.2 g/dL (31.0-37.0); Macrocytosis Slight; Mean Platelet Volume 9.7; Platelet Count 152 k/uL (150-450); RBC 4.06 m/uL (4.30-5.90); RDW 13.7 % (11.5-15.5); WBC 6.7 k/uL (3.8-10.6)
[2024-05-05 09:05] LABS: African American GFR (CKD) 68 (>60 ml/min/1.73 sqM); Anion Gap 4 mmol/L; Blood Urea Nitrogen 23 mg/dL (9-20); Calcium 8.8 mg/dL (8.4-10.2); Carbon Dioxide 29 mmol/L (22-30); Chloride 107 mmol/L (98-107); Glucose 161 mg/dL (74-99); Non-African American GFR(CKD) 59 (>60 ml/min/1.73 sqM); Potassium 4.9 mmol/L (3.5-5.1); Sodium 140 mmol/L (137-145)
[2024-05-05 10:22] VITALS: TEMP 98
[2024-05-05] MEDS: SPIRONOLACTONE 25 MG TAB PO SCH (11:07)
[2024-05-05] MEDS: METOPROLOL TARTRATE 50 MG TAB PO STA (11:07)
[2024-05-05 12:10] VITALS: BP 127/76; PULSE 53; RESP 18
--- NOTE | 2024-05-05 14:59 | P.PN ---
Subjective Progress Note Date: 05/05/24 HISTORY OF PRESENT ILLNESS: This is a 68-year-old male with a past medical history significant for hype rtension, hyperlipidemia and obesity. Patient follows in the office with Dr. Hightower but has not been seen in the office since November 2022. We have been asked to see the patient in consultation for A-fib with RVR. Patient examined at the bedside in the emergency room. Patient presented to the hospital with a chief complaint of shortness of breath. He states he has been feeling short of breath for the past 2 to 3 weeks. Patient was found to be in A-fib with RVR. Patient was started on IV heparin and IV Cardizem. He remains in atrial fibrillation with heart rate between 385w185s. He is currently on IV Cardizem at 10 mg an hour. Patient denies having a history of atrial fibrillation. He currently denies chest pain or pressure. He reports he is still mildly short of breath this morning. Blood pressure stable. DIAGNOSTICS: - EKG reveals A-fib with RVR. - Chest xray mild cardiomegaly. - Laboratory data: WBC 7.3. Hemoglobin 14.0. Platelet count 149. Sodium 139. Potassium 4.5. BUN 21. Creatinine 0.86. Magnesium 1.8. Troponin negative x 3. TSH 1.410. - Current home cardiac medications include amlodipine 5 mg at night, losartan 100 mg at night. 05/02/2024 Patient examined this morning at the bedside. Patient currently denies chest pain or pressure. He denies shortness of breath. He remains in atrial fibrillation with heart rate between [id number]. He is currently on a Cardizem drip at 10 mg an hour. Patient is also on IV amiodarone. Echocardiogram completed revealing ejection fraction of 15%. 05/03/2024 Patient examined this morning at the bedside. Patient currently denies chest pain or pressure. He denies shortness of breath. He remains in atrial fibr illation with RVR. Blood pressures are soft with a systolic in the 90s this morning. 05/04 Yesterday, patient underwent MARK and synchronized cardioversion. EF was 25%. Also found mild to moderate mitral regurgitation, no PFO. Left atrial appendage is free of clot. Blood pressure 127/76, heart rate is in the 50s, pulse ox 95% on room air. Discussed findings of cardiomyopathy and no need at this time for LifeVest. Plan to increase Toprol XL and start patient on amiodarone PHYSICAL EXAM: VITAL SIGNS: Reviewed. GENERAL: Well-developed in no acute distress. HEENT: Head is normocephalic. Pupils are equal, round. Sclerae anicteric. Mucous membranes of the mouth are moist. Neck supple. No JVD or thyromegaly LUNGS: Respirations even and unlabored. Lungs essentially clear to auscultation bilaterally. HEART: Tachycardic. Irregular rate and rhythm. S1 and S2 heard. ABDOMEN: Soft. Nondistended. Nontender. EXTREMITIES: Normal range of motion. No clubbing or cyanosis. Peripheral pulse s intact. No lower extremity edema NEUROLOGIC: Awake and alert. Oriented x 3. ASSESSMENT: Shortness of breath x 3 weeks New onset atrial fibrillation with RVR, currently in sinus rhythm New onset cardiomyopathy, 15%, ischemic versus nonischemic, may be tachycardia induced secondary to A-fib with RVR Hypertension Hyperlipidemia Obesity: BMI 42.1 Previous alcohol use, none within the past year per patient PLAN: Continue current cardiac medications Losartan decreased to 25 mg at night to allow for increase in beta-paramjit therapy Discontinue amlodipine Continue metoprolol tartrate increased to 150 mg twice daily Continue oral amiodarone 400 mg twice daily for 1 week followed by 400 mg daily No need for LifeVest Patient is cleared for discharge from cardiology and will follow-up with Dr. Hightower in 1 week. Nurse practitioner note has been reviewed by physician. Signing provider agrees with the documented findings, assessment, and plan of care documented by NURSERY TECHNICIAN as a scribe. Objective - Vital Signs Vital signs: Vital Signs Temp 98 F 05/05/24 08:00 Pulse 58 L 05/05/24 08:00 Resp 20 05/05/24 08:00 BP 126/72 05/05/24 08:00 Pulse Ox 93 L 05/05/24 08:00 FiO2 Intake & Output 05/04/24 05/05/24 05/05/24 18:59 06:59 18:59 Intake Total 380 0 240 Output Total 0 Balance 380 0 240 Weight 135.4 kg Intake: IV 140 Invasive Line 1 20 Invasive Line 2 20 Oral 240 0 240 Output: Stool 0 Other: Voiding Method Toilet Toilet Toilet # Voids 2 # Bowel Movements 0 - Labs CBC & Chem 7: 05/05/24 08:01 05/05/24 08:01 Labs: Abnormal Lab Results - Last 24 Hours (Table) 05/05/24 05/05/24 Range/Units 08:01 08:01 RBC 4.06 L (4.30-5.90) m/uL MCV 103.0 H (80.0-100.0) fL BUN 23 H (9-20) mg/dL Glucose 161 H (74-99) mg/dL
--- NOTE | 2024-05-05 16:51 | P.DS ---
Providers Date of admission: 04/30/24 17:37 Expected date of discharge: 05/05/24 Attending physician: Sky Gutierrez MD Consults: 04/30/24 17:37 Consult Physician Routine Consulting Provider: Adam Russo Consult Reason/Comments: New onset A-fib with rvr Do you want consulting provider notified?: Yes Primary care physician: [facility] Course: Discharge Diagnosis: New onset atrial fibrillation with RVR HFrEF, EF 15%, unknown etiology Macrocytosis, B12 deficiency Hypertension Anxiety Hospital Course: 68-year-old male with a past medical history of hypertension and recently diagnosed A-fib with RVR presented to the ED from urgent care with ongoing shortness of breath. Patient also admitted to left upper extremity weakness and dizziness but denied headache, chest pain, palpitations, nausea vomiting, abdominal pain, dysuria, and lower extremity swelling. Vitals in the ED were significant for heart rate of 151 with an irregular rhythm, blood pressure 132/92, and O2 saturation of 95 on room air.. In the ED patient received EKG which showed heart rate of 144, atrial fibrillation with rapid ventricular response, left axis deviation (QRS axis less than -30), and nonspecific T wave abnormality. Patient also received a chest x-ray which showed mild cardiomegaly. Patient's labs in the ED were significant for sodium 131, potassium 4.5, chloride 110, BUN 21, creatinine 1.86, troponin less than 0.012, total protein 6.1, WBC 6.6, hemoglobin 14.2, and MCV 100.1. In the ED patient was started on Cardizem and heparin drip. Patient was admitted to the floors for further workup of atrial fibrillation with RVR and rate control. While inpatient patient received an echo which showed a left ventricular ejection fraction estimated at 15% with moderate concentric left ventricular hypertrophy. It also showed severe right atrial dilation. Despite therapy with a Cardizem drip patient was not able to convert out of A-fib and required a transesophageal echocardiogram with synchronized cardioversion. Status post the synchronized cardioversion, patient was successfully converted to normal sinus rhythm with a heart rate that ranged in the 50s. Other findings from the transesophageal echocardiogram included a left ventricular EF of 25%, no evidence of a PFO, moderate mitral regurgitation, and left atrial appendage free of clots. After patient was converted to normal sinus rhythm, it was decided that any further potential cardiac interventions including cardiac catheterization could be completed outpatient. Patient was prescribed new medications upon discharge which included Eliquis, losartan, amiodarone, spironolactone, and metoprolol succinate. Patient is being discharged to home. Patient is recommended to follow-up with his PCP and hospital manager. He should eventually also be started on SGLT2 inhibitor. Will likely require LifeVest versus ICD placement outp atient. General: non toxic, no distress, appears at stated age, morbidly obese Derm: warm, dry Head: atraumatic, normocephalic, symmetric Eyes: EOMI, no lid lag, anicteric sclera Mouth: no lip lesion, mucus membranes moist Cardiovascular: S1S2 regular, no murmur Lungs: Decreased bilateral, no rhonchi, no rales , no accessory muscle use Ext: no gross muscle atrophy, no edema, no contractures Neuro: No focal neurologic deficits Psych: Alert, oriented, appropriate affect A total of 33 minutes were spent preparing this complex discarge summary. Patient was discharged on 05/05/2024 at 1211 I have seen and evaluated the patient today. Discussed with the resident and agree with the residents finding and plan as documented in the resident's note. Changes highlighted in blue font. Patient Condition at Discharge: Stable Plan - Discharge Summary Discharge Rx Participant: No New Discharge Prescriptions: New Apixaban [Eliquis] 5 mg PO BID #90 tab Famotidine [Pepcid] 20 mg PO BID #60 tab Cyanocobalamin [Vitamin B-12] 1,000 mcg PO DAILY #90 tablet Losartan [Cozaar] 25 mg PO DAILY #30 tab Amiodarone [Cordarone] 400 mg PO BID #60 tablet Spironolactone [Aldactone] 12.5 mg PO DAILY #90 tab Metoprolol Succinate (ER) [Toprol XL] 150 mg PO BID #90 tab Continue oxyCODONE-APAP 5-325MG [Percocet 5-325 mg] 0.5 tab PO BID Discontinued Losartan Potassium [Cozaar] 100 mg PO HS amLODIPine [Norvasc] 5 mg PO HS Ibuprofen [Motrin Ib] 200 mg PO Q8H PRN PRN Reason: Pain Discharge Medication List oxyCODONE-APAP 5-325MG [Percocet 5-325 mg] 0.5 tab PO BID 11/06/22 [History] Amiodarone [Cordarone] 400 mg PO BID #60 tablet 05/05/24 [Rx] Apixaban [Eliquis] 5 mg PO BID #90 tab 05/05/24 [Rx] Cyanocobalamin [Vitamin B-12] 1,000 mcg PO DAILY #90 tablet 05/05/24 [Rx] Famotidine [Pepcid] 20 mg PO BID #60 tab 05/05/24 [Rx] Losartan [Cozaar] 25 mg PO DAILY #30 tab 05/05/24 [Rx] Metoprolol Succinate (ER) [Toprol XL] 150 mg PO BID #90 tab 05/05/24 [Rx] Spironolactone [Aldactone] 12.5 mg PO DAILY #90 tab 05/05/24 [Rx] Follow up Appointment(s)/Referral(s): Bruce Rebolledo MD [Primary Care Provider] - 1-2 days (CALL AND MAKE JAQUELIN!) Juan Hightower DO [STAFF PHYSICIAN] - 1 Week (CALL AND MAKE JAQUELIN!) Patient Instructions/Handouts: Heart Failure (DC), A-fib (Atrial Fibrillation) (DC) Activity/Diet/Wound Care/Special Instructions: Please see your PCP and cardiology. Repeat blood work to check kidney function in 1 week. Discharge Disposition: HOME SELF-CARE
[2024-05-05] MEDS ORDERED: METOPROLOL TARTRATE 50 MG TAB PO SCH (21:00)
== END 2024-05-05 13:42 | disposition home or self-care (01) | DRG 309 ==
LOC: EC 16:04 → 3SCARD 17:37
PROVIDERS: ADMIT Family Medicine; ATTEND Family Medicine
DX: I48.91 Unspecified atrial fibrillation (principal); I50.20 Unspecified systolic (congestive) heart failure; Z68.41 Body mass index [BMI] 40.0-44.9, adult; D75.89 Other specified diseases of blood and blood-forming organs; E53.8 Deficiency of other specified B group vitamins; E66.9 Obesity, unspecified; I48.19 Other persistent atrial fibrillation; E78.5 Hyperlipidemia, unspecified; F41.9 Anxiety disorder, unspecified; I11.0 Hypertensive heart disease with heart failure; I42.9 Cardiomyopathy, unspecified; I25.10 Atherosclerotic heart disease of native coronary artery without angina pectoris; Z79.01 Long term (current) use of anticoagulants; Z79.899 Other long term (current) drug therapy; Z87.891 Personal history of nicotine dependence; Z28.310 Unvaccinated for COVID-19; Z88.6 Allergy status to analgesic agent; Z88.5 Allergy status to narcotic agent; Z87.19 Personal history of other diseases of the digestive system; Z88.8 Allergy status to other drugs, medicaments and biological substances
CPT/HCPCS: 36415; 71046; 80048; 80053; 82607; 82747; 83735; 84443; 84484; 85025; 85027; 85610; 85730; 92960; 93005; 93306; 93312; 93320; 93325; 96365; 96366; 96367; 96368; 96375; 99291

== ENCOUNTER → 2024-05-15 | Day surgery (SDC) | payer MEDICARE ==
[2024-05-14 08:45] VITALS: BMI 42.2
[~2024-05-15] MED LIST: ALPRAZolam 0.25 MG TAB PO PRN; HEPARIN SODIUM 1,000 UN/ML (10ML VL) ONE; LIDOCAINE 1% INJ 10MG/ML (20 ML MDV) ONE; NITROGLYCERIN SL TABS 0.4 MG TAB SUBLINGUAL PRN; ONDANSETRON 4 MG/2 ML VIAL ONE; VERAPAMIL 2.5 MG/ML 2 ML AMP ONE; fentaNYL (PF) 50 MCG/ML 2 ML AMP ONE
[2024-05-15] MEDS: ASPIRIN 325 MG TAB PO STA (10:36)
[2024-05-15] MEDS: SODIUM CHLORIDE 0.9% 1,000 ML in EMPTY BAG 1 BAG IV SCH (10:37)
[2024-05-15] MEDS: IV FLUID CONTINUATION 1,000 ML IV ONE (10:40)
[2024-05-15 10:47] LABS: Glucose,Whole Blood 101 mg/dL (70-110)
[2024-05-15] MEDS: ALPRAZolam 0.5 MG TAB PO PRN (11:03)
[2024-05-15 11:09] VITALS: RESP 16; TEMP 98.4
[2024-05-15] MEDS: LIDOCAINE 1% INJ 10MG/ML (20 ML MDV) SQ ONE (11:51)
[2024-05-15] MEDS: fentaNYL (PF) 50 MCG/ML 2 ML AMP IVP ONE (11:51)
[2024-05-15] MEDS: MIDAZOLAM 2 MG/2 ML VIAL IVP ONE (11:51)
[2024-05-15] MEDS: VERAPAMIL SYRINGE (5 MG/10 ML) INTRAARTER ONE (11:52)
[2024-05-15] MEDS: HEPARIN SODIUM 1,000 UN/ML (10ML VL) IV ONE (11:55)
[2024-05-15] MEDS: HEPARIN SODIUM,PORCINE (1 ML) 2,500 UNIT in SODIUM CHLORIDE 0.9% 250 ML IRRIGATION PRN (12:01)
[2024-05-15] MEDS: IOPAMIDOL-370 100ML BTL INJ ONE (12:01)
[2024-05-15] MEDS: HEPARIN SODIUM,PORCINE 10,000 UNIT in SODIUM CHLORIDE 0.9% 1,000 ML IRRIGATION PRN (12:01)
--- NOTE | 2024-05-15 12:11 | P.CARDCATH ---
Description of Procedure: PROCEDURES PERFORMED: Left heart catheterization, bilateral coronary angiography, ultrasound guided arterial access INDICATION: cardiomyopathy CONSENT:I have discussed the risks, benefits and alternative therapies for the above-mentioned procedure and for both sedation/analgesia as well as necessary blood product administration, if indicated, as they pertain to this patient. The patient has indicated understanding and acceptance of the risks and procedures discussed. PROCEDURE: After the risks, benefits and alternatives of the above mentioned procedure explained in detail with the patient, informed consent was obtained. Patient was taken to the catheterization lab and prepped and draped in usual fashion. Ultrasound guidance was used to assess for arterial access. 1% lidocaine was used to anesthetize the right radial artery. A 6-Lao sheath was placed in the right radial artery using modified Seldinger technique and ultrasound guidance. Left coronary angiography was performed with a 5-Lao JL 3.5 catheter and right coronary angiography was performed with a 5-Lao FR5 catheter in various views. A 5-Lao FR5 catheter was inserted into the left ventricle and pressure measurements were obtained. The right radial sheath was removed and a TR band was placed with hemostasis achieved. The patient tolerate d the procedure well. Patient was transported back to the post catheterization holding area in stable condition. Conscious Sedation: Patient was monitored under the direct supervision of myself for conscious sedation using Versed and fentanyl for a total duration of 8 minutes HEMODYNAMICS: aorta:144/96 LV: 141/15, LVEDP 26 SELECTIVE CORONARY ARTERIOGRAPHY: LEFT MAIN: The left main is a large caliber vessel which bifurcates into the LAD and circumflex. There is no significant stenosis. LEFT ANTERIOR DESCENDING CORONARY ARTERY: LAD is a large caliber vessel which wraps around to the apex. There are mild luminal irregularities with 10-20% mid LAD stenosis. Diagonal 1 has a 50% stenosis at the origin. LEFT CIRCUMFLEX CORONARY ARTERY: Left circumflex is a moderate caliber vessel with mild 10-20% stenosis. RIGHT CORONARY ARTERY: The right coronary artery is a large caliber vessel which gives off a PDA and PLV branch and is the dominant vessel. There is mild 20% proximal RCA stenosis and otherwise mild luminal irregularities. FINAL IMPRESSION: 1. Mild CAD as described above including 10-20% LAD, circumflex and RCA stenosis with diagonal 1 50% ostial stenosis. 2. Elevated left sided filling pressures 3. Recurrent Afib throughout procedure PLAN: 1. Aggressive risk factor modification per most recent ACC/AHA guidelines. 2. Follow-up in the office in 1-2 weeks.
[2024-05-15] MEDS: ONDANSETRON 4 MG/2 ML VIAL IVP STA (13:20)
[2024-05-15 15:09] VITALS: BP 138/72
[2024-05-15 16:13] VITALS: PULSE 101
== END ==
LOC: CATHCVL 10:12
PROVIDERS: ATTEND Internal Medicine
DX: I25.10 Atherosclerotic heart disease of native coronary artery without angina pectoris (principal); I42.9 Cardiomyopathy, unspecified; I48.91 Unspecified atrial fibrillation
CPT/HCPCS: 93458; C1769; C1894; J2250; J1644 ×3; J2405; J2001; J3010; Q9967